=== PATIENT | male | born 1960 | race Two or more races ===

== ENCOUNTER 2017-02-15 21:01 | Inpatient (IN) | payer SELFPAY ==
[~2017-02-15] VITALS: Ht 167.6 cm; Wt 77.1 kg
[~2017-02-15 21:01] MED LIST: AMOX1TAB11 PO; AMOX250C PO; CEFP200T PO; GLIP5TAB10 PO; IBUP-1060 PO; INSU100C4 SQ; INSU100I27 SQ; INSU100V13 SQ; LEVO750T31 PO; LISI-338 PO; METF500T4 PO; METR500T PO; OXYC1TAB9 PO; ibuprofen; metformin
--- NOTE | 2017-02-15 21:37 | PHYS DOC ---
Past Medical History Past Medical History: Diabetes-Type II Additional Past Medical Histor: RECURRING right back abscess. Past Surgical History: Other Additional Past Surgical Histo: abd sx RLQ, DRAIN TO R BACK 6+ TIMES Alcohol Use: None Drug Use: None Adult General Chief Complaint Chief Complaint: SKIN RASH/ABSCESS [facility] HPI Patient is a 56 year old male presents emergency department stating that he has an abscess on his right side. Patient states that he has had this abscess in the past. In which she's had to be hospitalized. Patient has started taken amoxicillin on Sunday for the abscess with no relief. Patient is running a temperature of 101 at this time. The abscesses size of a football. It is very tender to touch and appears to be very indurated. Patient's last tetanus shot was in September. Patient is Serbian-speaking only family member at bedside was interpreting. Review of Systems Review of Systems Constitutional: Denies fever or chills [] Eyes: Denies change in visual acuity, redness, or eye pain [] HENT: Denies nasal congestion or sore throat [] Respiratory: Denies cough or shortness of breath [] Cardiovascular: No additional information not addressed in HPI [] GI: Denies abdominal pain, nausea, vomiting, bloody stools or diarrhea [] : Denies dysuria or hematuria [] Musculoskeletal: Denies back pain or joint pain [] Integument: Denies rash or skin lesions [] Neurologic: Denies headache, focal weakness or sensory changes [] Endocrine: Denies polyuria or polydipsia [] Current Medications Current Medications Current Medications Medications (Trade) Dose Ordered Sig/Yaima Start Time Stop Time Status Last Admin Dose Admin Acetaminophen (Tylenol) 650 mg 1X ONCE 02/15/17 21:45 02/15/17 21:46 DC 02/15/17 21:52 650 MG Allergies Allergies Allergies Coded Allergies Type Severity Reaction Last Updated Verified No Known Drug Allergies 09/20/16 No Physical Exam Physical Exam Constitutional: Well developed, well nourished, no acute distress, non-toxic appearance. [] HENT: Normocephalic, atraumatic, bilateral external ears normal, oropharynx moist, no oral exudates, nose normal. [] Eyes: PERRLA, EOMI, conjunctiva normal, no discharge. [] Neck: Normal range of motion, no tenderness, supple, no stridor. [] Cardiovascular:Heart rate regular rhythm, no murmur [] Lungs & Thorax: Bilateral breath sounds clear to auscultation [] Skin: Warm, dry, no erythema, no rash. Right side abscess noted approximate size of a football very tender to touch indurated with a few red areas. Patient does have some areas noted that are not indurated. Back: No tenderness Extremities: No tenderness, no cyanosis, no clubbing, ROM intact, no edema. [] Neurologic: Alert and oriented X 3, normal motor function, normal sensory function, no focal deficits noted. [] Psychologic: Affect normal, judgement normal, mood normal. [] Current Patient Data Vital Signs Vital Signs Date Time Temp Pulse Resp B/P (MAP) Pulse Ox O2 Delivery O2 Flow Rate FiO2 02/15/17 21:05 101.0 114 20 93 Room Air 101.0 Lab Values Laboratory Tests Test 02/15/17 21:55 White Blood Count 19.5 x10^3/uL (4.0-11.0) H Red Blood Count 4.95 x10^6/uL (4.30-5.70) Hemoglobin 14.5 g/dL (13.0-17.5) Hematocrit 41.6 % (39.0-53.0) Mean Corpuscular Volume 84 fL (79-100) Mean Corpuscular Hemoglobin 29 pg (25-35) Mean Corpuscular Hemoglobin Concent 35 g/dL (31-37) Red Cell Distribution Width 13.9 % (11.5-14.5) Platelet Count 417 x10^3/uL (140-400) H Neutrophils (%) (Auto) 78 % (31-73) H Lymphocytes (%) (Auto) 11 % (24-48) L Monocytes (%) (Auto) 11 % (0-9) H Eosinophils (%) (Auto) 0 % (0-3) Basophils (%) (Auto) 1 % (0-3) Neutrophils # (Auto) 15.2 x10^3uL (1.8-7.7) H Lymphocytes # (Auto) 2.1 x10^3/uL (1.0-4.8) Monocytes # (Auto) 2.1 x10^3/uL (0.0-1.1) H Eosinophils # (Auto) 0.0 x10^3/uL (0.0-0.7) Basophils # (Auto) 0.1 x10^3/uL (0.0-0.2) Segmented Neutrophils % 64 % (35-66) Band Neutrophils % 10 % (0-9) H Lymphocytes % 14 % (24-48) L Monocytes % 11 % (0-10) H Basophils % 1 % (0-3) Toxic Granulation Slight Platelet Estimate Adequate (ADEQUATE) Sodium Level 130 mmol/L (136-145) L Potassium Level 3.6 mmol/L (3.5-5.1) Chloride Level 94 mmol/L (98-107) L Carbon Dioxide Level 24 mmol/L (21-32) Anion Gap 12 (6-14) Blood Urea Nitrogen 14 mg/dL (8-26) Creatinine 0.9 mg/dL (0.7-1.3) Estimated GFR (Cockcroft-Gault) 87.9 BUN/Creatinine Ratio 16 (6-20) Glucose Level 290 mg/dL (70-99) H Calcium Level 9.5 mg/dL (8.5-10.1) Total Bilirubin 1.0 mg/dL (0.2-1.0) Aspartate Amino Transferase (AST) 19 U/L (15-37) Alanine Aminotransferase (ALT) 35 U/L (16-63) Alkaline Phosphatase 367 U/L (46-116) H Total Protein 8.6 g/dL (6.4-8.2) H Albumin 2.7 g/dL (3.4-5.0) L Albumin/Globulin Ratio 0.5 (1.0-1.7) L Laboratory Tests 02/15/17 21:55 Laboratory Tests 02/15/17 21:55 EKG EKG [] Radiology/Procedures Radiology/Procedures [] Course & Med Decision Making Course & Med Decision Making Pertinent Labs and Imaging studies reviewed. (See chart for details) Patient will be provided with Tylenol here in the emergency department. CBC CMP and blood cultures have been ordered. Ultrasound is also been ordered. A call his been placed to the hospitalist for admission. Spoke with Dr. castellano in regards to admission. He has recommended that we call surgery for a consult so the abscess may be drained tomorrow. Spoke with surgeon who is requesting that the patient remain nothing by mouth after midnight for I&D of the abscess. [] Dragon Disclaimer Dragon Disclaimer This electronic medical record was generated, in whole or in part, using a voice recognition dictation system. Departure Departure Impression: Primary Impression: Abscess Disposition: 09 ADMITTED INPATIENT Admitting Physician: Ingrid Castellano Condition: STABLE Referrals: UNKNOWN PCP NAME (PCP) MARLY DE LEON APRN February 15, 2017 21:37
[2017-02-15] MEDS ORDERED: ACETAMINOPHEN 325 MG TABLET. PO ONE (21:45)
[2017-02-15 22:05] LABS: BASO # 0.1 x10^3/uL (0.0-0.2); BASO % 1 % (0-3); EOS % 0 % (0-3); HEMATOCRIT 41.6 % (39.0-53.0); HEMOGLOBIN 14.5 g/dL (13.0-17.5); LYMPH # 2.1 x10^3/uL (1.0-4.8); LYMPH % 11 % (24-48); MEAN CORPUSCULAR HEMOGLOBIN 29 pg (25-35); MEAN CORPUSCULAR HGB CONC 35 g/dL (31-37); MEAN CORPUSCULAR VOLUME 84 fL (79-100); MONO % 11 % (0-9); NEUT % 78 % (31-73); PLATELET COUNT 417 x10^3/uL (140-400); RED BLOOD COUNT 4.95 x10^6/uL (4.30-5.70); RED CELL DISTRIBUTION WIDTH 13.9 % (11.5-14.5); WHITE BLOOD COUNT 19.5 x10^3/uL (4.0-11.0)
[2017-02-15 22:16] LABS: CALCIUM 9.5 mg/dL (8.5-10.1); CREATININE 0.9 mg/dL (0.7-1.3); GFR 87.9; POTASSIUM 3.6 mmol/L (3.5-5.1)
[2017-02-15 22:21] LABS: ALBUMIN 2.7 g/dL (3.4-5.0); ALBUMIN/GLOBULIN RATIO 0.5 (1.0-1.7); TOTAL PROTEIN 8.6 g/dL (6.4-8.2)
[2017-02-15 22:22] LABS: % BASOS 1 % (0-3)
[2017-02-15 22:23] LABS: PLT ESTIMATE ADEQUATE (ADEQUATE); TOXIC GRANULATION SLIGHT
--- NOTE | 2017-02-15 22:36 | RAD ---
PROCEDURE Limited abdomen ultrasound HISTORY Right lower back redness and pain, history of chronic abscess TECHNIQUE Grayscale and color Doppler sonography were utilized COMPARISON CT abdomen and pelvis July 04, 2016 FINDINGS Right dorsal lumbar paraspinal tissue evaluation demonstrates a 6.7 x 3.4 hypoechoic non shadowing focus with areas of internal blood flow, no discrete drainable fluid. Separately at the paraspinal tissues documented is a non shadowing hypoechoic planer band leading toward the skin typical of the skin incision, there is a 1 centimeter rounded focus which is likely scar tissue although a very small fluid collection this location cannot be excluded. IMPRESSION Right dorsal lumbar paraspinal scar is present. Separate from this scar there is a oblong 6.7 centimeter hypoechoic focus with areas of internal blood flow, the internal vascularity is not typical of a fluid collection and could indicate either a focus of exuberant granulation tissue, a paraspinal mass or hernia. Electronically signed by: Redd Connell MD (February 15, 2017 22:35:15)
[2017-02-15] MEDS ORDERED: PIP/TAZO PER PHARMACY MC PRN (22:45)
[2017-02-15] MEDS: IV NORMAL SALINE 1000ML BAG 1,000 ML IV SCH (22:54)
[2017-02-15] MEDS ORDERED: MORPHINE SULFATE 4 MG/ML DISP.SYRIN. IV ONE (23:00)
[2017-02-15] MEDS ORDERED: VANCOMYCIN 2 GM in IV NORMAL SALINE 500ML BAG 500 ML IV ONE (23:00)
[2017-02-15] MEDS: PIPERACILLIN/TAZOBACTAM 3.375 GM in IV NORMAL SALINE 50ML 50 ML IV SCH (23:00)
[2017-02-15 23:34] VITALS: BP 134/77
[2017-02-16] MEDS ORDERED: DEXTROSE 50% 25 GM / 50ML DISP.SYRIN. IV PRN ×2 (01:30→15:15)
[2017-02-16] MEDS: VANCOMYCIN PER PHARMACY MC PRN (01:36)
[2017-02-16 03:00] VITALS: BP 114/71
[2017-02-16] MEDS ORDERED: INSULIN ASPART 300 UNITS/3 ML INSULN.PEN SQ ONE (03:00)
[2017-02-16] MEDS: MORPHINE SULFATE 4 MG/ML DISP.SYRIN. IV PRN ×5 (03:32→21:17)
[2017-02-16] MEDS: IV NORMAL SALINE 1000ML BAG 1,000 ML IV SCH ×2 (05:44→15:14)
[2017-02-16] MEDS: PIPERACILLIN/TAZOBACTAM 3.375 GM in IV NORMAL SALINE 50ML 50 ML IV SCH ×2 (05:44→12:01)
[2017-02-16 05:48] LABS: BASO # 0.1 x10^3/uL (0.0-0.2); BASO % 0 % (0-3); EOS % 0 % (0-3); HEMATOCRIT 35.2 % (39.0-53.0); HEMOGLOBIN 12.5 g/dL (13.0-17.5); LYMPH % 11 % (24-48); MEAN CORPUSCULAR HEMOGLOBIN 30 pg (25-35); MEAN CORPUSCULAR HGB CONC 36 g/dL (31-37); MEAN CORPUSCULAR VOLUME 85 fL (79-100); MONO % 11 % (0-9); NEUT % 77 % (31-73); PLATELET COUNT 371 x10^3/uL (140-400); RED BLOOD COUNT 4.17 x10^6/uL (4.30-5.70); RED CELL DISTRIBUTION WIDTH 14.2 % (11.5-14.5); WHITE BLOOD COUNT 18.9 x10^3/uL (4.0-11.0)
[2017-02-16 06:06] LABS: CALCIUM 8.7 mg/dL (8.5-10.1); CREATININE 0.8 mg/dL (0.7-1.3); GFR 100.7; POTASSIUM 3.2 mmol/L (3.5-5.1)
[2017-02-16 07:00] VITALS: BP 123/76
[2017-02-16] MEDS: INSULIN ASPART 300 UNITS/3 ML INSULN.PEN SQ SCH ×4 (09:03→17:54)
[2017-02-16 11:00] VITALS: BP 128/75
[2017-02-16] MEDS ORDERED: IOHEXOL 300 MG/ML 75 ML VIAL IV ONE (12:00)
[2017-02-16] MEDS ORDERED: IOHEXOL 240 MG/ML 50ML VIAL. PO ONE (12:00)
[2017-02-16] MEDS ORDERED: CONTRAST GIVEN MC PRN (12:00)
--- NOTE | 2017-02-16 12:06 | PDOC2 ---
JULIOCESAR REYES SHIPSMITH 02/16/17 1206: CONSULT Date of Consult Date of Consult DATE: 02/16/17 TIME: 12:00 Reason for Consult Reason for Consult: abscess Referring Physician Referring Physician: ER Identification/Chief Complaint Chief Complaint flank abscess Source Source: Chart review, Patient History of Present Illness Reason for Visit: Patient well known to our service for multiple admissions for recurrent retroperitoneal abscess. In 09/14/2016 he underwent an xlap, appy and wide drainage of abscess. He was treated with antibiotics and wound care. He reports it resolved and has had no trouble until last Sunday when he started having swelling and pain to same area again. 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 He has been on chronic abxs in past for these abscesses Past Medical History Cardiovascular: No pertinent hx Hepatobiliary: No pertinent hx Psych: No pertinent hx Rheumatologic: No pertinent hx Infectious disease: No pertinent hx, Other Endocrine: Diabetes Past Surgical History Past Surgical History: Appendectomy, Other Family History Family History: No Significant, Diabetes Social History ALCOHOL: none Drugs: None Current Problem List Problem List Problems Medical Problems: (1) Abscess Status: Acute Current Medications Current Medications Current Medications Acetaminophen (Tylenol) 650 mg 1X ONCE PO Last administered on 02/15/17 21:52 ; Start 02/15/17 at 21:45; Stop 02/15/17 at 21:46; Status DC Sodium Chloride 1,000 ml @ 125 mls/hr Q8H IV Last administered on 02/16/17 05 :44; Start 02/15/17 at 22:33; Stop 02/16/17 at 22:32 Vancomycin HCl (Vanco Per Pharmacy) 1 each PRN DAILY PRN MC SEE COMMENTS Last administered on 02/16/17 01:36; Start 02/15/17 at 22:45 Piperacillin Sod/ Tazobactam Sod (Zosyn Per Pharmacy) 1 each PRN DAILY PRN MC SEE COMMENTS; Start 02/15/17 at 22:45 Vancomycin HCl 2 gm/Sodium Chloride 500 ml @ 250 mls/hr 1X ONCE IV Last administered on 02/16/17 00:06; Start 02/15/17 at 23:00; Stop 02/16/17 at 00:59 ; Status DC Piperacillin Sod/ Tazobactam Sod 3.375 gm/Sodium Chloride 50 ml @ 100 mls/hr Q6HRS IV Last administered on 02/16/17 05:44; Start 02/16/17 at 00:00 Morphine Sulfate 4 mg 1X ONCE IV Last administered on 02/15/17 22:56; Start 02/15/17 at 23:00; Stop 02/15/17 at 23:01; Status DC Insulin Aspart (NovoLOG) 0-7 UNITS TIDWMEALS SQ Last administered on 02/16/17 09:03; Start 02/16/17 at 08:00 Dextrose (Dextrose 50%-Water Syringe) 12.5 gm PRN Q15MIN PRN IV SEE COMMENTS; Start 02/16/17 at 01:30 Morphine Sulfate 4 mg PRN Q2HR PRN IV SEVERE PAIN Last administered on 08:58; Start 02/16/17 at 01:30 Vancomycin HCl 1.25 gm/Sodium Chloride 250 ml @ 167 mls/hr Q12H IV ; Start 09/23 at 12:00 Vancomycin HCl 1 each 1X ONCE MC ; Start 02/17/17 at 11:30; Stop 02/17/17 at 11 :31 Insulin Aspart (NovoLOG) 0-7 UNITS 1X ONCE SQ Last administered on 02/16/17 04:10; Start 02/16/17 at 03:00; Stop 02/16/17 at 03:01; Status DC Iohexol (Omnipaque 240 Mg/ml) 30 ml 1X ONCE PO ; Start 02/16/17 at 12:00; Stop 02/16/17 at 12:01 Iohexol (Omnipaque 300 Mg/ml) 75 ml 1X ONCE IV ; Start 02/16/17 at 12:00; Stop 02/16/17 at 12:01 Info (Do NOT chart on this entry -- for MONITORING) 1 each PRN DAILY PRN MC SEE COMMENTS; Start 02/16/17 at 12:00; Stop 02/18/17 at 11:59 Active Scripts Active Lisinopril 5 Mg Tablet 5 Mg PO DAILY Oxycodone-Acetaminophen 10-325 (Oxycodone Hcl/Acetaminophen) 1 Each Tablet 1 Tab PO PRN Q12HR PRN Flagyl (Metronidazole) 500 Mg Tablet 500 Mg PO Q12HR Cefpodoxime Proxetil 200 Mg Tablet 200 Mg PO BID Levemir Flextouch (Insulin Detemir) 100 Unit/1 Ml Insuln.pen 10 Units SQ QHS Reported Metformin Hcl 500 Mg Tablet 2 Tab PO BID Allergies Allergies: Coded Allergies: No Known Drug Allergies (Unverified , 09/20/16) ROS General: YES: Chills, Other (+ fevers) PSYCHOLOGICAL ROS: No: Anxiety, Depression Eyes: No Blurry vision, No Double vision HEENT: No: Heacaches, Sore Throat Hematological and Lymphatic: No: Bleeding Problems, Blood Clots Respiratory: YES: SOB with excertion, No: Cough Cardiovascular: No Chest Pain, No Palpitations Gastrointestinal: Yes Nausea, No Abdominal Pain Genitourinary: No Dysuria, No Hematuria Musculoskeletal: No Joint Pain, No Muscle Pain Neurological: No Confusion Skin: Yes Other (see hpi) Physical Exam General: Alert, Oriented X3, Cooperative, No acute distress HEENT: PERRLA, Mucous membr. moist/pink Lungs: Clear to auscultation, Normal air movement Heart: Regular rate, Normal S1, Normal S2, No murmurs Abdomen: Soft, Other (ND, right flank over previous scar is erythematous, indurated, tender and warm to touch ) Extremities: No clubbing, No cyanosis Skin: No rashes, No breakdown Neuro: Normal gait, Normal speech Psych/Mental Status: Mental status NL, Mood NL MUSCULOSKELETAL: No deformity, No swelling Vitals VITALS Vital Signs Date Time Temp Pulse Resp B/P (MAP) Pulse Ox O2 Delivery O2 Flow Rate FiO2 02/16/17 11:00 98.9 82 20 128/75 (92) 92 Room Air 98.9 Labs Labs Laboratory Tests Test 02/15/17 21:55 02/16/17 00:19 02/16/17 04:07 02/16/17 04:36 White Blood Count 19.5 x10^3/uL (4.0-11.0) 18.9 x10^3/uL (4.0-11.0) Red Blood Count 4.95 x10^6/uL (4.30-5.70) 4.17 x10^6/uL (4.30-5.70) Hemoglobin 14.5 g/dL (13.0-17.5) 12.5 g/dL (13.0-17.5) Hematocrit 41.6 % (39.0-53.0) 35.2 % (39.0-53.0) Mean Corpuscular Volume 84 fL (79-100) 85 fL (79-100) Mean Corpuscular Hemoglobin 29 pg (25-35) 30 pg (25-35) Mean Corpuscular Hemoglobin Concent 35 g/dL (31-37) 36 g/dL (31-37) Red Cell Distribution Width 13.9 % (11.5-14.5) 14.2 % (11.5-14.5) Platelet Count 417 x10^3/uL (140-400) 371 x10^3/uL (140-400) Neutrophils (%) (Auto) 78 % (31-73) 77 % (31-73) Lymphocytes (%) (Auto) 11 % (24-48) 11 % (24-48) Monocytes (%) (Auto) 11 % (0-9) 11 % (0-9) Eosinophils (%) (Auto) 0 % (0-3) 0 % (0-3) Basophils (%) (Auto) 1 % (0-3) 0 % (0-3) Neutrophils # (Auto) 15.2 x10^3uL (1.8-7.7) 14.6 x10^3uL (1.8-7.7) Lymphocytes # (Auto) 2.1 x10^3/uL (1.0-4.8) 2.0 x10^3/uL (1.0-4.8) Monocytes # (Auto) 2.1 x10^3/uL (0.0-1.1) 2.1 x10^3/uL (0.0-1.1) Eosinophils # (Auto) 0.0 x10^3/uL (0.0-0.7) 0.1 x10^3/uL (0.0-0.7) Basophils # (Auto) 0.1 x10^3/uL (0.0-0.2) 0.1 x10^3/uL (0.0-0.2) Segmented Neutrophils % 64 % (35-66) Band Neutrophils % 10 % (0-9) Lymphocytes % 14 % (24-48) Monocytes % 11 % (0-10) Basophils % 1 % (0-3) Toxic Granulation Slight Platelet Estimate Adequate (ADEQUATE) Sodium Level 130 mmol/L (136-145) 133 mmol/L (136-145) Potassium Level 3.6 mmol/L (3.5-5.1) 3.2 mmol/L (3.5-5.1) Chloride Level 94 mmol/L (98-107) 98 mmol/L (98-107) Carbon Dioxide Level 24 mmol/L (21-32) 25 mmol/L (21-32) Anion Gap 12 (6-14) 10 (6-14) Blood Urea Nitrogen 14 mg/dL (8-26) 13 mg/dL (8-26) Creatinine 0.9 mg/dL (0.7-1.3) 0.8 mg/dL (0.7-1.3) Estimated GFR (Cockcroft-Gault) 87.9 100.7 BUN/Creatinine Ratio 16 (6-20) Glucose Level 290 mg/dL (70-99) 257 mg/dL (70-99) Calcium Level 9.5 mg/dL (8.5-10.1) 8.7 mg/dL (8.5-10.1) Total Bilirubin 1.0 mg/dL (0.2-1.0) Aspartate Amino Transf (AST/SGOT) 19 U/L (15-37) Alanine Aminotransferase (ALT/SGPT) 35 U/L (16-63) Alkaline Phosphatase 367 U/L (46-116) Total Protein 8.6 g/dL (6.4-8.2) Albumin 2.7 g/dL (3.4-5.0) Albumin/Globulin Ratio 0.5 (1.0-1.7) Glucose (Fingerstick) 272 mg/dL (70-99) 242 mg/dL (70-99) Test 02/16/17 07:57 Glucose (Fingerstick) 247 mg/dL (70-99) Laboratory Tests Test 02/15/17 21:55 02/16/17 00:19 02/16/17 04:07 02/16/17 04:36 White Blood Count 19.5 x10^3/uL (4.0-11.0) 18.9 x10^3/uL (4.0-11.0) Red Blood Count 4.95 x10^6/uL (4.30-5.70) 4.17 x10^6/uL (4.30-5.70) Hemoglobin 14.5 g/dL (13.0-17.5) 12.5 g/dL (13.0-17.5) Hematocrit 41.6 % (39.0-53.0) 35.2 % (39.0-53.0) Mean Corpuscular Volume 84 fL (79-100) 85 fL (79-100) Mean Corpuscular Hemoglobin 29 pg (25-35) 30 pg (25-35) Mean Corpuscular Hemoglobin Concent 35 g/dL (31-37) 36 g/dL (31-37) Red Cell Distribution Width 13.9 % (11.5-14.5) 14.2 % (11.5-14.5) Platelet Count 417 x10^3/uL (140-400) 371 x10^3/uL (140-400) Neutrophils (%) (Auto) 78 % (31-73) 77 % (31-73) Lymphocytes (%) (Auto) 11 % (24-48) 11 % (24-48) Monocytes (%) (Auto) 11 % (0-9) 11 % (0-9) Eosinophils (%) (Auto) 0 % (0-3) 0 % (0-3) Basophils (%) (Auto) 1 % (0-3) 0 % (0-3) Neutrophils # (Auto) 15.2 x10^3uL (1.8-7.7) 14.6 x10^3uL (1.8-7.7) Lymphocytes # (Auto) 2.1 x10^3/uL (1.0-4.8) 2.0 x10^3/uL (1.0-4.8) Monocytes # (Auto) 2.1 x10^3/uL (0.0-1.1) 2.1 x10^3/uL (0.0-1.1) Eosinophils # (Auto) 0.0 x10^3/uL (0.0-0.7) 0.1 x10^3/uL (0.0-0.7) Basophils # (Auto) 0.1 x10^3/uL (0.0-0.2) 0.1 x10^3/uL (0.0-0.2) Segmented Neutrophils % 64 % (35-66) Band Neutrophils % 10 % (0-9) Lymphocytes % 14 % (24-48) Monocytes % 11 % (0-10) Basophils % 1 % (0-3) Toxic Granulation Slight Platelet Estimate Adequate (ADEQUATE) Sodium Level 130 mmol/L (136-145) 133 mmol/L (136-145) Potassium Level 3.6 mmol/L (3.5-5.1) 3.2 mmol/L (3.5-5.1) Chloride Level 94 mmol/L (98-107) 98 mmol/L (98-107) Carbon Dioxide Level 24 mmol/L (21-32) 25 mmol/L (21-32) Anion Gap 12 (6-14) 10 (6-14) Blood Urea Nitrogen 14 mg/dL (8-26) 13 mg/dL (8-26) Creatinine 0.9 mg/dL (0.7-1.3) 0.8 mg/dL (0.7-1.3) Estimated GFR (Cockcroft-Gault) 87.9 100.7 BUN/Creatinine Ratio 16 (6-20) Glucose Level 290 mg/dL (70-99) 257 mg/dL (70-99) Calcium Level 9.5 mg/dL (8.5-10.1) 8.7 mg/dL (8.5-10.1) Total Bilirubin 1.0 mg/dL (0.2-1.0) Aspartate Amino Transf (AST/SGOT) 19 U/L (15-37) Alanine Aminotransferase (ALT/SGPT) 35 U/L (16-63) Alkaline Phosphatase 367 U/L (46-116) Total Protein 8.6 g/dL (6.4-8.2) Albumin 2.7 g/dL (3.4-5.0) Albumin/Globulin Ratio 0.5 (1.0-1.7) Glucose (Fingerstick) 272 mg/dL (70-99) 242 mg/dL (70-99) Test 02/16/17 07:57 Glucose (Fingerstick) 247 mg/dL (70-99) Assessment/Plan Assessment/Plan Right flank erythema and induration, history of recurrent retroperitoneal abscesses leukocytosis, fevers DM US reviewed, Will check CT, will consult Dr Michel D/W KHADRA Hayes MD 02/16/17 1718: CONSULT Allergies Allergies: Coded Allergies: No Known Drug Allergies (Unverified , 09/20/16) Assessment/Plan Assessment/Plan Pt seen and examined. Agree with Ms. Reyes's note. Pt well known Relatively asymptomatic compared to previous episodes right flank erythema and thickening will ask IR to drain Thanks for consult! JULIOCESAR REYES APRN February 16, 2017 12:06 KHADRA LUNA MD February 16, 2017 17:18
[2017-02-16] MEDS: VANCOMYCIN 1.25 GM in IV NORMAL SALINE 250ML 250 ML IV SCH (12:37)
--- NOTE | 2017-02-16 13:59 | RAD ---
Indication right flank pain. Abscess. Axial images of the abdomen and pelvis were obtained. Both oral and IV contrast were administered. 75 cc of Omnipaque 300 was administered intravenously. Note is made of a previous examination 5 months ago. The lung bases are clear. The liver and spleen appear unremarkable. The pancreas adrenal glands and kidneys appear normal. Occasional diverticula are seen associated with the large bowel. Active inflammation is not seen. Findings compatible with a recurrent abscess are seen. There is an air fluid collection, compatible with abscess, in the soft tissues of the right back just above the crest of the iliac muscle. This fluid collection measures approximately 11 cm in greatest dimension. The abscess communicates with the right retroperitoneum and manifests as an air fluid collection measuring approximately 7 cm interposed between the iliac bone and psoas muscle, displacing the psoas slightly medially. The abscess likely incorporates part of the iliac muscle Small pockets of air are seen medial to the psoas muscle. The overall appearance of the abscess is very similar to the previous exam. IMPRESSION: Recurrent abscess right flank similar to the examination 5 months ago PQRS Compliance Statement: One or more of the following individualized dose reduction techniques were utilized for this examination: 1. Automated exposure control 2. Adjustment of the mA and/or kV according to patient size 3. Use of iterative reconstruction technique
[2017-02-16 15:00] VITALS: BP 137/78
[2017-02-16] MEDS ORDERED: oxyCODONE IR 5 MG TABLET PO PRN (15:00)
[2017-02-16 19:00] VITALS: BP 143/72
[2017-02-16] MEDS: oxyCODONE IR 5 MG TABLET PO PRN (19:02)
[2017-02-16] MEDS: INSULIN DETEMIR 300 UNITS/3 ML INSULN.PEN. SQ SCH (21:22)
[2017-02-16 23:00] VITALS: BP 115/64
[2017-02-17] MEDS: VANCOMYCIN 1.25 GM in IV NORMAL SALINE 250ML 250 ML IV SCH ×2 (00:19→12:00)
[2017-02-17] MEDS: oxyCODONE IR 5 MG TABLET PO PRN ×2 (00:21→22:13)
[2017-02-17 03:01] VITALS: BP 122/77
[2017-02-17 07:00] VITALS: BP 136/77
[2017-02-17] MEDS: LISINOPRIL 5 MG TABLET. PO SCH (08:33)
[2017-02-17] MEDS: MORPHINE SULFATE 4 MG/ML DISP.SYRIN. IV PRN ×2 (08:34→12:06)
[2017-02-17] MEDS: INSULIN ASPART 300 UNITS/3 ML INSULN.PEN SQ SCH ×3 (08:41→17:00)
[2017-02-17 11:00] VITALS: BP 132/75
[2017-02-17 11:55] LABS: BASO % 0 % (0-3); EOS % 0 % (0-3); HEMOGLOBIN 12.1 g/dL (13.0-17.5); LYMPH % 10 % (24-48); MEAN CORPUSCULAR HEMOGLOBIN 29 pg (25-35); MEAN CORPUSCULAR HGB CONC 35 g/dL (31-37); MEAN CORPUSCULAR VOLUME 85 fL (79-100); MONO % 10 % (0-9); NEUT % 80 % (31-73); PLATELET COUNT 400 x10^3/uL (140-400); RED BLOOD COUNT 4.15 x10^6/uL (4.30-5.70); RED CELL DISTRIBUTION WIDTH 13.9 % (11.5-14.5); WHITE BLOOD COUNT 20.6 x10^3/uL (4.0-11.0)
[2017-02-17 11:58] LABS: INR 1.2 (0.8-1.1); PROTHROMBIN TIME PATIENT 14.7 SEC (11.7-14.0)
[2017-02-17 12:04] LABS: ALBUMIN 2.1 g/dL (3.4-5.0); ALBUMIN/GLOBULIN RATIO 0.4 (1.0-1.7); CALCIUM 8.6 mg/dL (8.5-10.1); CREATININE 0.8 mg/dL (0.7-1.3); GFR 100.7; POTASSIUM 3.4 mmol/L (3.5-5.1); TOTAL BILIRUBIN 1.3 mg/dL (0.2-1.0); TOTAL PROTEIN 7.1 g/dL (6.4-8.2)
[2017-02-17] MEDS ORDERED: LIDOCAINE 1% / SOD BICARB 8.4% 20 ML VIAL. IJ ONE ×2 (12:31→13:00)
[2017-02-17] MEDS ORDERED: fentaNYL PF VIAL 100 MCG/2 ML VIAL ONE (12:32)
[2017-02-17] MEDS ORDERED: MIDAZOLAM HCL/PF 2 MG/2 ML VIAL. ONE (12:32)
[2017-02-17] MEDS: VANCOMYCIN PER PHARMACY MC PRN (13:01)
--- NOTE | 2017-02-17 13:15 | PDOC4 ---
Operative Note Operative Note Procedure: R Flank abscess drain Indication: recurrent right flank abscess cold work operator: John faculty research assistant: None complications: None Sample: 10 cc purulent fluid sent for culture sedation: none MARCUS MORALES MD February 17, 2017 13:15
[2017-02-17] MEDS: VANCOMYCIN 1.5 GM in IV NORMAL SALINE 500ML BAG 500 ML IV SCH ×2 (13:42→21:02)
--- NOTE | 2017-02-17 13:45 | RAD ---
Procedure: Ultrasound Guided Abscess Drain History: Patient with recurrent right psoas abscess The procedure, risks, and complications to include bleeding, infection, tube dislodgment, damage to solid organs and visceral perforation were explained to the patient and they understood and wished to proceed. Consent form signed. The right flank was prepped and draped using maximal sterile technique and 1% Xylocaine was used for local anesthesia. Ultrasound evaluation: Ultrasound shows that there is a complex fluid collection in the right flank consistent with prior CT ultrasound imaging. An ultrasound image was saved and sent to PACS. Under ultrasound guidance a 18 gauge needle was advanced into the collection and a 0.035 wire placed. The tract was dilated to 10 iraqi and a 10 iraqi abscession drain was placed over the wire. Aspirated fluid appeared purulent. 10 cc was sent for culture and sensitivity. The catheter was sutured to the skin. Sedation: None The patient was monitored by pulse oximetry and cardiovascular monitoring equipment and observed by the nurses in attendance. Complications: None The patient tolerated the procedure well and returned to the floor in stable condition. Conclusion: Ultrasound right flank drain placement. Recommend 2-week sinogram follow up.
[2017-02-17 15:00] VITALS: BP 126/68
[2017-02-17] MEDS ORDERED: INSULIN ASPART 300 UNITS/3 ML INSULN.PEN SQ ONE (17:15)
--- NOTE | 2017-02-17 18:56 | PDOC ---
PROGRESS NOTES Chief Complaint Chief Complaint Recurrent flank abscess with retroperit extension ASSESSMENT AND PLAN: 1. Abscess: s/p drain placement by VIR today. fluid sent for culture. cont current Abx regimen 2. Pain control: adequate, offer oxyconting as first choice. 3. Leukocytosis: with left shift, c/w infection 4. DM: poorly controlled, prob 2/2 infection. home regimen, cont ISS 5. Hypokalemia: replete orally 6. Prophylaxis: lovenox History of Present Illness History of Present Illness flank improved with drain, still hot and tender to palp. Vitals Vitals Vital Signs Date Time Temp Pulse Resp B/P (MAP) Pulse Ox O2 Delivery O2 Flow Rate FiO2 02/17/17 17:18 Room Air 02/17/17 15:00 99.6 88 20 126/68 (87) 94 99.6 Physical Exam General: Alert, Oriented X3, Cooperative, No acute distress Heart: Regular rate, No murmurs Lungs: Clear Abdomen: Normal bowel sounds, Soft, No tenderness, Other ( right flank erythematous, indurated, tender, drain in place) Extremities: No clubbing, No cyanosis, No edema Skin: No rashes Labs LABS Laboratory Tests Test 02/16/17 20:48 02/17/17 08:02 02/17/17 11:30 02/17/17 11:58 Glucose (Fingerstick) 288 mg/dL (70-99) 219 mg/dL (70-99) 174 mg/dL (70-99) White Blood Count 20.6 x10^3/uL (4.0-11.0) Red Blood Count 4.15 x10^6/uL (4.30-5.70) Hemoglobin 12.1 g/dL (13.0-17.5) Hematocrit 35.0 % (39.0-53.0) Mean Corpuscular Volume 85 fL (79-100) Mean Corpuscular Hemoglobin 29 pg (25-35) Mean Corpuscular Hemoglobin Concent 35 g/dL (31-37) Red Cell Distribution Width 13.9 % (11.5-14.5) Platelet Count 400 x10^3/uL (140-400) Neutrophils (%) (Auto) 80 % (31-73) Lymphocytes (%) (Auto) 10 % (24-48) Monocytes (%) (Auto) 10 % (0-9) Eosinophils (%) (Auto) 0 % (0-3) Basophils (%) (Auto) 0 % (0-3) Neutrophils # (Auto) 16.5 x10^3uL (1.8-7.7) Lymphocytes # (Auto) 2.0 x10^3/uL (1.0-4.8) Monocytes # (Auto) 2.0 x10^3/uL (0.0-1.1) Eosinophils # (Auto) 0.0 x10^3/uL (0.0-0.7) Basophils # (Auto) 0.0 x10^3/uL (0.0-0.2) Prothrombin Time 14.7 SEC (11.7-14.0) Prothromb Time International Ratio 1.2 (0.8-1.1) Sodium Level 134 mmol/L (136-145) Potassium Level 3.4 mmol/L (3.5-5.1) Chloride Level 97 mmol/L (98-107) Carbon Dioxide Level 28 mmol/L (21-32) Anion Gap 9 (6-14) Blood Urea Nitrogen 9 mg/dL (8-26) Creatinine 0.8 mg/dL (0.7-1.3) Estimated GFR (Cockcroft-Gault) 100.7 BUN/Creatinine Ratio 11 (6-20) Glucose Level 177 mg/dL (70-99) Calcium Level 8.6 mg/dL (8.5-10.1) Total Bilirubin 1.3 mg/dL (0.2-1.0) Aspartate Amino Transf (AST/SGOT) 11 U/L (15-37) Alanine Aminotransferase (ALT/SGPT) 19 U/L (16-63) Alkaline Phosphatase 266 U/L (46-116) Total Protein 7.1 g/dL (6.4-8.2) Albumin 2.1 g/dL (3.4-5.0) Albumin/Globulin Ratio 0.4 (1.0-1.7) Vancomycin Level Trough 4.9 mcg/mL (10.0-20.0) Vancomycin Last Dose Date 02-17-17 Vancomycin Last Dose Time 0000 Test 02/17/17 16:53 Glucose (Fingerstick) 382 mg/dL (70-99) CHRIS HENRY MD February 17, 2017 18:55
[2017-02-17 19:15] VITALS: BP 114/72
[2017-02-17] MEDS: INSULIN DETEMIR 300 UNITS/3 ML INSULN.PEN. SQ SCH (21:11)
--- NOTE | 2017-02-17 21:35 | PDOC ---
SURGICAL PROGRESS NOTE Subjective Pt with c/o right flank pain Vital Signs Vital Signs Date Time Temp Pulse Resp B/P (MAP) Pulse Ox O2 Delivery O2 Flow Rate FiO2 02/17/17 19:15 98.4 85 16 114/72 (86) 93 Room Air 98.4 I&O Intake and Output 02/17/17 07:00 Intake Total 1840 ml Output Total 0 ml Balance 1840 ml Intake Oral 740 ml IV Total 1100 ml Output Urine Total 0 ml # Voids 2 General: Alert, Oriented X3, Cooperative, No acute distress Abdomen: Soft, Other (TTP and induration of right flank area) Labs Laboratory Tests Test 02/15/17 21:55 02/16/17 00:19 02/16/17 04:07 02/16/17 04:36 White Blood Count 19.5 x10^3/uL (4.0-11.0) 18.9 x10^3/uL (4.0-11.0) Red Blood Count 4.95 x10^6/uL (4.30-5.70) 4.17 x10^6/uL (4.30-5.70) Hemoglobin 14.5 g/dL (13.0-17.5) 12.5 g/dL (13.0-17.5) Hematocrit 41.6 % (39.0-53.0) 35.2 % (39.0-53.0) Mean Corpuscular Volume 84 fL (79-100) 85 fL (79-100) Mean Corpuscular Hemoglobin 29 pg (25-35) 30 pg (25-35) Mean Corpuscular Hemoglobin Concent 35 g/dL (31-37) 36 g/dL (31-37) Red Cell Distribution Width 13.9 % (11.5-14.5) 14.2 % (11.5-14.5) Platelet Count 417 x10^3/uL (140-400) 371 x10^3/uL (140-400) Neutrophils (%) (Auto) 78 % (31-73) 77 % (31-73) Lymphocytes (%) (Auto) 11 % (24-48) 11 % (24-48) Monocytes (%) (Auto) 11 % (0-9) 11 % (0-9) Eosinophils (%) (Auto) 0 % (0-3) 0 % (0-3) Basophils (%) (Auto) 1 % (0-3) 0 % (0-3) Neutrophils # (Auto) 15.2 x10^3uL (1.8-7.7) 14.6 x10^3uL (1.8-7.7) Lymphocytes # (Auto) 2.1 x10^3/uL (1.0-4.8) 2.0 x10^3/uL (1.0-4.8) Monocytes # (Auto) 2.1 x10^3/uL (0.0-1.1) 2.1 x10^3/uL (0.0-1.1) Eosinophils # (Auto) 0.0 x10^3/uL (0.0-0.7) 0.1 x10^3/uL (0.0-0.7) Basophils # (Auto) 0.1 x10^3/uL (0.0-0.2) 0.1 x10^3/uL (0.0-0.2) Segmented Neutrophils % 64 % (35-66) Band Neutrophils % 10 % (0-9) Lymphocytes % 14 % (24-48) Monocytes % 11 % (0-10) Basophils % 1 % (0-3) Toxic Granulation Slight Platelet Estimate Adequate (ADEQUATE) Sodium Level 130 mmol/L (136-145) 133 mmol/L (136-145) Potassium Level 3.6 mmol/L (3.5-5.1) 3.2 mmol/L (3.5-5.1) Chloride Level 94 mmol/L (98-107) 98 mmol/L (98-107) Carbon Dioxide Level 24 mmol/L (21-32) 25 mmol/L (21-32) Anion Gap 12 (6-14) 10 (6-14) Blood Urea Nitrogen 14 mg/dL (8-26) 13 mg/dL (8-26) Creatinine 0.9 mg/dL (0.7-1.3) 0.8 mg/dL (0.7-1.3) Estimated GFR (Cockcroft-Gault) 87.9 100.7 BUN/Creatinine Ratio 16 (6-20) Glucose Level 290 mg/dL (70-99) 257 mg/dL (70-99) Calcium Level 9.5 mg/dL (8.5-10.1) 8.7 mg/dL (8.5-10.1) Total Bilirubin 1.0 mg/dL (0.2-1.0) Aspartate Amino Transf (AST/SGOT) 19 U/L (15-37) Alanine Aminotransferase (ALT/SGPT) 35 U/L (16-63) Alkaline Phosphatase 367 U/L (46-116) Total Protein 8.6 g/dL (6.4-8.2) Albumin 2.7 g/dL (3.4-5.0) Albumin/Globulin Ratio 0.5 (1.0-1.7) Glucose (Fingerstick) 272 mg/dL (70-99) 242 mg/dL (70-99) Hemoglobin A1c 8.6 % (4.8-5.6) Test 02/16/17 07:57 02/16/17 11:26 02/16/17 16:52 02/16/17 20:48 Glucose (Fingerstick) 247 mg/dL (70-99) 207 mg/dL (70-99) 209 mg/dL (70-99) 288 mg/dL (70-99) Test 02/17/17 08:02 02/17/17 11:30 02/17/17 11:58 02/17/17 16:53 Glucose (Fingerstick) 219 mg/dL (70-99) 174 mg/dL (70-99) 382 mg/dL (70-99) White Blood Count 20.6 x10^3/uL (4.0-11.0) Red Blood Count 4.15 x10^6/uL (4.30-5.70) Hemoglobin 12.1 g/dL (13.0-17.5) Hematocrit 35.0 % (39.0-53.0) Mean Corpuscular Volume 85 fL (79-100) Mean Corpuscular Hemoglobin 29 pg (25-35) Mean Corpuscular Hemoglobin Concent 35 g/dL (31-37) Red Cell Distribution Width 13.9 % (11.5-14.5) Platelet Count 400 x10^3/uL (140-400) Neutrophils (%) (Auto) 80 % (31-73) Lymphocytes (%) (Auto) 10 % (24-48) Monocytes (%) (Auto) 10 % (0-9) Eosinophils (%) (Auto) 0 % (0-3) Basophils (%) (Auto) 0 % (0-3) Neutrophils # (Auto) 16.5 x10^3uL (1.8-7.7) Lymphocytes # (Auto) 2.0 x10^3/uL (1.0-4.8) Monocytes # (Auto) 2.0 x10^3/uL (0.0-1.1) Eosinophils # (Auto) 0.0 x10^3/uL (0.0-0.7) Basophils # (Auto) 0.0 x10^3/uL (0.0-0.2) Prothrombin Time 14.7 SEC (11.7-14.0) Prothromb Time International Ratio 1.2 (0.8-1.1) Sodium Level 134 mmol/L (136-145) Potassium Level 3.4 mmol/L (3.5-5.1) Chloride Level 97 mmol/L (98-107) Carbon Dioxide Level 28 mmol/L (21-32) Anion Gap 9 (6-14) Blood Urea Nitrogen 9 mg/dL (8-26) Creatinine 0.8 mg/dL (0.7-1.3) Estimated GFR (Cockcroft-Gault) 100.7 BUN/Creatinine Ratio 11 (6-20) Glucose Level 177 mg/dL (70-99) Calcium Level 8.6 mg/dL (8.5-10.1) Total Bilirubin 1.3 mg/dL (0.2-1.0) Aspartate Amino Transf (AST/SGOT) 11 U/L (15-37) Alanine Aminotransferase (ALT/SGPT) 19 U/L (16-63) Alkaline Phosphatase 266 U/L (46-116) Total Protein 7.1 g/dL (6.4-8.2) Albumin 2.1 g/dL (3.4-5.0) Albumin/Globulin Ratio 0.4 (1.0-1.7) Vancomycin Level Trough 4.9 mcg/mL (10.0-20.0) Vancomycin Last Dose Date 02-17-17 Vancomycin Last Dose Time 0000 Test 02/17/17 20:18 Glucose (Fingerstick) 238 mg/dL (70-99) Laboratory Tests Test 02/17/17 08:02 02/17/17 11:30 02/17/17 11:58 02/17/17 16:53 Glucose (Fingerstick) 219 mg/dL (70-99) 174 mg/dL (70-99) 382 mg/dL (70-99) White Blood Count 20.6 x10^3/uL (4.0-11.0) Red Blood Count 4.15 x10^6/uL (4.30-5.70) Hemoglobin 12.1 g/dL (13.0-17.5) Hematocrit 35.0 % (39.0-53.0) Mean Corpuscular Volume 85 fL (79-100) Mean Corpuscular Hemoglobin 29 pg (25-35) Mean Corpuscular Hemoglobin Concent 35 g/dL (31-37) Red Cell Distribution Width 13.9 % (11.5-14.5) Platelet Count 400 x10^3/uL (140-400) Neutrophils (%) (Auto) 80 % (31-73) Lymphocytes (%) (Auto) 10 % (24-48) Monocytes (%) (Auto) 10 % (0-9) Eosinophils (%) (Auto) 0 % (0-3) Basophils (%) (Auto) 0 % (0-3) Neutrophils # (Auto) 16.5 x10^3uL (1.8-7.7) Lymphocytes # (Auto) 2.0 x10^3/uL (1.0-4.8) Monocytes # (Auto) 2.0 x10^3/uL (0.0-1.1) Eosinophils # (Auto) 0.0 x10^3/uL (0.0-0.7) Basophils # (Auto) 0.0 x10^3/uL (0.0-0.2) Prothrombin Time 14.7 SEC (11.7-14.0) Prothromb Time International Ratio 1.2 (0.8-1.1) Sodium Level 134 mmol/L (136-145) Potassium Level 3.4 mmol/L (3.5-5.1) Chloride Level 97 mmol/L (98-107) Carbon Dioxide Level 28 mmol/L (21-32) Anion Gap 9 (6-14) Blood Urea Nitrogen 9 mg/dL (8-26) Creatinine 0.8 mg/dL (0.7-1.3) Estimated GFR (Cockcroft-Gault) 100.7 BUN/Creatinine Ratio 11 (6-20) Glucose Level 177 mg/dL (70-99) Calcium Level 8.6 mg/dL (8.5-10.1) Total Bilirubin 1.3 mg/dL (0.2-1.0) Aspartate Amino Transf (AST/SGOT) 11 U/L (15-37) Alanine Aminotransferase (ALT/SGPT) 19 U/L (16-63) Alkaline Phosphatase 266 U/L (46-116) Total Protein 7.1 g/dL (6.4-8.2) Albumin 2.1 g/dL (3.4-5.0) Albumin/Globulin Ratio 0.4 (1.0-1.7) Vancomycin Level Trough 4.9 mcg/mL (10.0-20.0) Vancomycin Last Dose Date 02-17-17 Vancomycin Last Dose Time 0000 Test 02/17/17 20:18 Glucose (Fingerstick) 238 mg/dL (70-99) Problem List Problems Medical Problems: (1) Abscess Status: Acute Assessment/Plan will ask IR to drain cont abx Problems: KHADRA LUNA MD February 17, 2017 21:35
[2017-02-17 23:06] VITALS: BP 115/73
[2017-02-18 03:16] VITALS: BP 124/70
[2017-02-18] MEDS: VANCOMYCIN 1.5 GM in IV NORMAL SALINE 500ML BAG 500 ML IV SCH ×3 (05:37→20:47)
[2017-02-18 07:00] VITALS: BP 130/72
[2017-02-18] MEDS: LISINOPRIL 5 MG TABLET. PO SCH (08:26)
[2017-02-18] MEDS: INSULIN ASPART 300 UNITS/3 ML INSULN.PEN SQ SCH ×3 (08:30→16:45)
--- NOTE | 2017-02-18 08:36 | PDOC ---
JULIOCESAR ROMEO [employer] 02/18/17 0836: SURGICAL PROGRESS NOTE Subjective tolerating diet pain improved s/p perc drain yesterday Vital Signs Vital Signs Date Time Temp Pulse Resp B/P (MAP) Pulse Ox O2 Delivery O2 Flow Rate FiO2 02/18/17 08:26 75 130/72 02/18/17 07:35 Room Air 02/18/17 07:00 98.9 20 94 98.9 I&O Intake and Output 02/18/17 07:00 Intake Total 1400 ml Output Total 210 ml Balance 1190 ml Intake Oral 400 ml IV Total 1000 ml Drainage Total 210 ml # Voids 2 General: Alert, Oriented X3, Cooperative, No acute distress Abdomen: Soft, Other (ND, drain to right flank, seropurulent drainage ) Labs Laboratory Tests Test 02/16/17 11:26 02/16/17 16:52 02/16/17 20:48 02/17/17 08:02 Glucose (Fingerstick) 207 mg/dL (70-99) 209 mg/dL (70-99) 288 mg/dL (70-99) 219 mg/dL (70-99) Test 02/17/17 11:30 02/17/17 11:58 02/17/17 16:53 02/17/17 20:18 White Blood Count 20.6 x10^3/uL (4.0-11.0) Red Blood Count 4.15 x10^6/uL (4.30-5.70) Hemoglobin 12.1 g/dL (13.0-17.5) Hematocrit 35.0 % (39.0-53.0) Mean Corpuscular Volume 85 fL (79-100) Mean Corpuscular Hemoglobin 29 pg (25-35) Mean Corpuscular Hemoglobin Concent 35 g/dL (31-37) Red Cell Distribution Width 13.9 % (11.5-14.5) Platelet Count 400 x10^3/uL (140-400) Neutrophils (%) (Auto) 80 % (31-73) Lymphocytes (%) (Auto) 10 % (24-48) Monocytes (%) (Auto) 10 % (0-9) Eosinophils (%) (Auto) 0 % (0-3) Basophils (%) (Auto) 0 % (0-3) Neutrophils # (Auto) 16.5 x10^3uL (1.8-7.7) Lymphocytes # (Auto) 2.0 x10^3/uL (1.0-4.8) Monocytes # (Auto) 2.0 x10^3/uL (0.0-1.1) Eosinophils # (Auto) 0.0 x10^3/uL (0.0-0.7) Basophils # (Auto) 0.0 x10^3/uL (0.0-0.2) Prothrombin Time 14.7 SEC (11.7-14.0) Prothromb Time International Ratio 1.2 (0.8-1.1) Sodium Level 134 mmol/L (136-145) Potassium Level 3.4 mmol/L (3.5-5.1) Chloride Level 97 mmol/L (98-107) Carbon Dioxide Level 28 mmol/L (21-32) Anion Gap 9 (6-14) Blood Urea Nitrogen 9 mg/dL (8-26) Creatinine 0.8 mg/dL (0.7-1.3) Estimated GFR (Cockcroft-Gault) 100.7 BUN/Creatinine Ratio 11 (6-20) Glucose Level 177 mg/dL (70-99) Calcium Level 8.6 mg/dL (8.5-10.1) Total Bilirubin 1.3 mg/dL (0.2-1.0) Aspartate Amino Transf (AST/SGOT) 11 U/L (15-37) Alanine Aminotransferase (ALT/SGPT) 19 U/L (16-63) Alkaline Phosphatase 266 U/L (46-116) Total Protein 7.1 g/dL (6.4-8.2) Albumin 2.1 g/dL (3.4-5.0) Albumin/Globulin Ratio 0.4 (1.0-1.7) Vancomycin Level Trough 4.9 mcg/mL (10.0-20.0) Vancomycin Last Dose Date 02-17-17 Vancomycin Last Dose Time 0000 Glucose (Fingerstick) 174 mg/dL (70-99) 382 mg/dL (70-99) 238 mg/dL (70-99) Laboratory Tests Test 02/17/17 11:30 02/17/17 11:58 02/17/17 16:53 02/17/17 20:18 White Blood Count 20.6 x10^3/uL (4.0-11.0) Red Blood Count 4.15 x10^6/uL (4.30-5.70) Hemoglobin 12.1 g/dL (13.0-17.5) Hematocrit 35.0 % (39.0-53.0) Mean Corpuscular Volume 85 fL (79-100) Mean Corpuscular Hemoglobin 29 pg (25-35) Mean Corpuscular Hemoglobin Concent 35 g/dL (31-37) Red Cell Distribution Width 13.9 % (11.5-14.5) Platelet Count 400 x10^3/uL (140-400) Neutrophils (%) (Auto) 80 % (31-73) Lymphocytes (%) (Auto) 10 % (24-48) Monocytes (%) (Auto) 10 % (0-9) Eosinophils (%) (Auto) 0 % (0-3) Basophils (%) (Auto) 0 % (0-3) Neutrophils # (Auto) 16.5 x10^3uL (1.8-7.7) Lymphocytes # (Auto) 2.0 x10^3/uL (1.0-4.8) Monocytes # (Auto) 2.0 x10^3/uL (0.0-1.1) Eosinophils # (Auto) 0.0 x10^3/uL (0.0-0.7) Basophils # (Auto) 0.0 x10^3/uL (0.0-0.2) Prothrombin Time 14.7 SEC (11.7-14.0) Prothromb Time International Ratio 1.2 (0.8-1.1) Sodium Level 134 mmol/L (136-145) Potassium Level 3.4 mmol/L (3.5-5.1) Chloride Level 97 mmol/L (98-107) Carbon Dioxide Level 28 mmol/L (21-32) Anion Gap 9 (6-14) Blood Urea Nitrogen 9 mg/dL (8-26) Creatinine 0.8 mg/dL (0.7-1.3) Estimated GFR (Cockcroft-Gault) 100.7 BUN/Creatinine Ratio 11 (6-20) Glucose Level 177 mg/dL (70-99) Calcium Level 8.6 mg/dL (8.5-10.1) Total Bilirubin 1.3 mg/dL (0.2-1.0) Aspartate Amino Transf (AST/SGOT) 11 U/L (15-37) Alanine Aminotransferase (ALT/SGPT) 19 U/L (16-63) Alkaline Phosphatase 266 U/L (46-116) Total Protein 7.1 g/dL (6.4-8.2) Albumin 2.1 g/dL (3.4-5.0) Albumin/Globulin Ratio 0.4 (1.0-1.7) Vancomycin Level Trough 4.9 mcg/mL (10.0-20.0) Vancomycin Last Dose Date 02-17-17 Vancomycin Last Dose Time 0000 Glucose (Fingerstick) 174 mg/dL (70-99) 382 mg/dL (70-99) 238 mg/dL (70-99) Problem List Problems Medical Problems: (1) Abscess Status: Acute Assessment/Plan recurrent retroperitoneal abscess continue abx and drain Problems: KHADRA LUNA MD 02/18/17 1339: SURGICAL PROGRESS NOTE Assessment/Plan Pt seen and examined. Agree with Ms. Romeo's note Pt feels better s/p drain still significant erythema, induration cont abx and pain control Problems: JULIOCESAR ROMEO APRN February 18, 2017 08:36 KHADRA LUNA MD February 18, 2017 13:39
--- NOTE | 2017-02-18 09:58 | HP ---
ADMIT DATE: 02/15/2017 CHIEF COMPLAINT: Right flank abscesses. HISTORY OF PRESENT ILLNESS: The patient is a 56-year-old [place] gentleman with past medical history of diabetes as well as recurrent flank abscesses, who presented with the same complaint to the Emergency Room. He relates that symptoms essentially started on Sunday and it got worse and he decided to return to the Emergency Room. Pain is essentially the same area above his posterior iliac crest and wrapping around forward. Has pain, especially with moving. He denies any fevers or rigors. Appetite is okay. Denies any diarrhea. His history actually dates back 6-7 years ago when he had his first abscess which since then has recurred and has been treated surgically with incision and drainages multiple times. Most recently, he actually had undergone surgery in 09/2016 with ex-lap and wide drainage of retroperitoneal portion of the abscess. He had been treated with antibiotics for prolonged time with resolution of his symptoms up until now. PAST MEDICAL HISTORY: Diabetes mellitus, recurrent abscesses as above. FAMILY HISTORY: No significant disorders known in family. He has 11 siblings, healthy. 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 Quit smoking 10 years ago. No alcohol or drug use. ALLERGIES: No known drug allergies. MEDICATIONS: MAR reconciled with home meds. REVIEW OF SYSTEMS: Positive for pain in his flank, especially with moving. Rest of organ system review is negative. PHYSICAL EXAMINATION: VITAL SIGNS: From today show a blood pressure of 128/75, heart rate of 82, respiratory rate of 20. He is afebrile. GENERAL: This is a well-nourished 56-year-old [place] gentleman, alert and oriented, in no acute distress. HEENT: Shows no scleral icterus. NECK: Supple. LUNGS: Clear. HEART: Regular rate and rhythm. ABDOMEN: Has positive bowel sounds, soft, minimal tenderness in right lower quadrant flank above his pelvic crest with indurated firm painful erythematous patch of about 10 cm. EXTREMITIES: Show no edema. SKIN: Warm, soft and dry without any rash other than his cellulitis of the flank. LABORATORY DATA: CBC from today shows a WBC of 18.9, hemoglobin 12.5, platelets of 371. Chemistries with a BUN and creatinine of 13 and 0.8, sodium at 133, potassium 3.2. Blood glucoses in the 200+ range. Of note, electrolytes at admission had shown a sodium of 130, potassium of 3.6. LFTs with an elevation in alkaline phosphatase of 367, albumin at 2.7. IMAGING STUDIES: CT of the abdomen and pelvis, recurrent abscess right flank similar to the examination 5 months ago. The abscess communicates with the right retroperitoneum and manifests as air fluid collection measuring approximately 7 cm interposed between the iliac bone and psoas muscle. ASSESSMENT AND PLAN: The patient is a 56-year-old gentleman with unfortunately recurrent flank abscesses communicating with the retroperitoneum. He has undergone surgeries for this in the past and unfortunately, he is now presenting with same picture. Surgery has been consulted for intervention. He has been started on Zosyn and vancomycin. The bacterial species identified at his surgery in September with Klebsiella oxytoca essentially only resistant to piperacillin and ampicillin. We will therefore change his antibiotic coverage to Levaquin, which showed sensitivity. For his diabetes, we will continue home regimen. Control currently is poor, but this may be secondary to infection. Continue insulin sliding scale. Pain control is fair. Does require high dose IV morphine. We will give him the option of oxycodone 5-10 as well for longer duration of action. CHRIS HENRY MD DR: FERNANDA/klever JOB#: [id number] / [id number] DARIA
[2017-02-18 11:00] VITALS: BP 127/75
--- NOTE | 2017-02-18 13:28 | PDOC ---
PROGRESS NOTES Chief Complaint Chief Complaint Recurrent flank abscess with retroperit extension ASSESSMENT AND PLAN: 1. Abscess: s/p drain placement by [facility] on 02/17. fluid sent for culture, gram nalini with february WBC, no bacteria. cont current Abx regimen (6talored to previous sensitivities) 2. Pain control: adequate, offer oxycodone as first choice. 3. Leukocytosis: with left shift, c/w infection 4. DM: poorly controlled, prob 2/2 infection. increase levemir to 15, cont ISS 5. Hypokalemia 6. Prophylaxis: lovenox History of Present Illness History of Present Illness flank improved with drain, still hot and firm, but no pain Vitals Vitals Vital Signs Date Time Temp Pulse Resp B/P (MAP) Pulse Ox O2 Delivery O2 Flow Rate FiO2 02/18/17 11:00 98.4 74 20 127/75 (92) 95 Room Air 98.4 Physical Exam General: Alert, Oriented X3, Cooperative, No acute distress Heart: Regular rate, No murmurs Lungs: Clear Abdomen: Soft, Other (ND, drain to right flank, seropurulent drainage ) Extremities: No clubbing, No cyanosis, No edema Skin: No rashes Labs LABS Laboratory Tests Test 02/17/17 16:53 02/17/17 20:18 02/18/17 07:23 02/18/17 11:12 Glucose (Fingerstick) 382 mg/dL (70-99) 238 mg/dL (70-99) 184 mg/dL (70-99) 271 mg/dL (70-99) Test 02/18/17 12:25 Vancomycin Level Trough 16.1 mcg/mL (10.0-20.0) Vancomycin Last Dose Date T Vancomycin Last Dose Time 0500 CHRIS HENRY MD February 18, 2017 13:28
[2017-02-18] MEDS: VANCOMYCIN PER PHARMACY MC PRN ×2 (13:32→13:44)
[2017-02-18 15:00] VITALS: BP 131/78
[2017-02-18] MEDS: metFORMIN 500 MG TABLET PO SCH (16:43)
[2017-02-18 19:30] VITALS: BP 130/77
[2017-02-18] MEDS: INSULIN DETEMIR 300 UNITS/3 ML INSULN.PEN. SQ SCH (20:51)
[2017-02-18 23:00] VITALS: BP 132/77
[2017-02-19 03:00] VITALS: BP 119/73
[2017-02-19 04:04] LABS: BASO # 0.1 x10^3/uL (0.0-0.2); BASO % 1 % (0-3); EOS % 3 % (0-3); HEMATOCRIT 34.7 % (39.0-53.0); HEMOGLOBIN 12.2 g/dL (13.0-17.5); LYMPH # 1.8 x10^3/uL (1.0-4.8); LYMPH % 18 % (24-48); MEAN CORPUSCULAR HEMOGLOBIN 30 pg (25-35); MEAN CORPUSCULAR HGB CONC 35 g/dL (31-37); MEAN CORPUSCULAR VOLUME 85 fL (79-100); MONO % 9 % (0-9); NEUT % 70 % (31-73); PLATELET COUNT 457 x10^3/uL (140-400); RED BLOOD COUNT 4.07 x10^6/uL (4.30-5.70); RED CELL DISTRIBUTION WIDTH 14.1 % (11.5-14.5); WHITE BLOOD COUNT 10.3 x10^3/uL (4.0-11.0)
[2017-02-19 04:13] LABS: CALCIUM 8.5 mg/dL (8.5-10.1); CREATININE 0.7 mg/dL (0.7-1.3); GFR 117.5; POTASSIUM 3.4 mmol/L (3.5-5.1)
[2017-02-19] MEDS: VANCOMYCIN 1.5 GM in IV NORMAL SALINE 500ML BAG 500 ML IV SCH ×3 (05:28→20:57)
[2017-02-19 07:00] VITALS: BP 129/80
[2017-02-19] MEDS: metFORMIN 500 MG TABLET PO SCH ×2 (08:29→17:26)
[2017-02-19] MEDS: LISINOPRIL 5 MG TABLET. PO SCH (08:30)
[2017-02-19] MEDS: INSULIN ASPART 300 UNITS/3 ML INSULN.PEN SQ SCH ×3 (08:43→17:31)
--- NOTE | 2017-02-19 10:13 | PDOC ---
PROGRESS NOTES Chief Complaint Chief Complaint Recurrent flank abscess with retroperitoneal extension 1. Abscess: s/p drain placement by [facility] on 02/17. fluid sent for culture, gram nalini with february WBC, no bacteria. cont current Abx regimen 2. Pain control: adequate, offer oxycodone as first choice. 3. Leukocytosis: with left shift, c/w infection 4. DM: poorly controlled, prob 2/2 infection. increase levemir to 15, cont ISS 5. Hypokalemia 6. Prophylaxis: lovenox History of Present Illness History of Present Illness flank improved with drain, still hot and firm, but no pain Vitals Vitals Vital Signs Date Time Temp Pulse Resp B/P (MAP) Pulse Ox O2 Delivery O2 Flow Rate FiO2 02/19/17 08:30 68 129/80 02/19/17 08:15 Room Air 02/19/17 07:00 98.4 20 94 98.4 Physical Exam General: Alert, Oriented X3, Cooperative, No acute distress Heart: Regular rate, No murmurs Lungs: Clear Abdomen: Soft, Other (ND, drain to right flank, seropurulent drainage ) Extremities: No clubbing, No cyanosis, No edema Skin: No rashes Labs LABS Laboratory Tests Test 02/18/17 11:12 02/18/17 12:25 02/18/17 16:27 02/18/17 20:56 Glucose (Fingerstick) 271 mg/dL (70-99) 205 mg/dL (70-99) 256 mg/dL (70-99) Vancomycin Level Trough 16.1 mcg/mL (10.0-20.0) Vancomycin Last Dose Date T Vancomycin Last Dose Time 0500 Test 02/19/17 02:45 02/19/17 07:36 White Blood Count 10.3 x10^3/uL (4.0-11.0) Red Blood Count 4.07 x10^6/uL (4.30-5.70) Hemoglobin 12.2 g/dL (13.0-17.5) Hematocrit 34.7 % (39.0-53.0) Mean Corpuscular Volume 85 fL (79-100) Mean Corpuscular Hemoglobin 30 pg (25-35) Mean Corpuscular Hemoglobin Concent 35 g/dL (31-37) Red Cell Distribution Width 14.1 % (11.5-14.5) Platelet Count 457 x10^3/uL (140-400) Neutrophils (%) (Auto) 70 % (31-73) Lymphocytes (%) (Auto) 18 % (24-48) Monocytes (%) (Auto) 9 % (0-9) Eosinophils (%) (Auto) 3 % (0-3) Basophils (%) (Auto) 1 % (0-3) Neutrophils # (Auto) 7.2 x10^3uL (1.8-7.7) Lymphocytes # (Auto) 1.8 x10^3/uL (1.0-4.8) Monocytes # (Auto) 0.9 x10^3/uL (0.0-1.1) Eosinophils # (Auto) 0.3 x10^3/uL (0.0-0.7) Basophils # (Auto) 0.1 x10^3/uL (0.0-0.2) Sodium Level 138 mmol/L (136-145) Potassium Level 3.4 mmol/L (3.5-5.1) Chloride Level 102 mmol/L (98-107) Carbon Dioxide Level 26 mmol/L (21-32) Anion Gap 10 (6-14) Blood Urea Nitrogen 11 mg/dL (8-26) Creatinine 0.7 mg/dL (0.7-1.3) Estimated GFR (Cockcroft-Gault) 117.5 Glucose Level 238 mg/dL (70-99) Calcium Level 8.5 mg/dL (8.5-10.1) Glucose (Fingerstick) 204 mg/dL (70-99) Review of Systems Review of Systems no n.,vd + chills and sweats Assessment and Plan Assessmemt and Plan Problems Medical Problems: (1) Abscess Status: Acute Problems: Comment Review of Relevant I have reviewed the following items lauren (where applicable) has been applied. Labs Laboratory Tests Test 02/17/17 11:30 02/17/17 11:58 02/17/17 16:53 02/17/17 20:18 White Blood Count 20.6 x10^3/uL (4.0-11.0) Red Blood Count 4.15 x10^6/uL (4.30-5.70) Hemoglobin 12.1 g/dL (13.0-17.5) Hematocrit 35.0 % (39.0-53.0) Mean Corpuscular Volume 85 fL (79-100) Mean Corpuscular Hemoglobin 29 pg (25-35) Mean Corpuscular Hemoglobin Concent 35 g/dL (31-37) Red Cell Distribution Width 13.9 % (11.5-14.5) Platelet Count 400 x10^3/uL (140-400) Neutrophils (%) (Auto) 80 % (31-73) Lymphocytes (%) (Auto) 10 % (24-48) Monocytes (%) (Auto) 10 % (0-9) Eosinophils (%) (Auto) 0 % (0-3) Basophils (%) (Auto) 0 % (0-3) Neutrophils # (Auto) 16.5 x10^3uL (1.8-7.7) Lymphocytes # (Auto) 2.0 x10^3/uL (1.0-4.8) Monocytes # (Auto) 2.0 x10^3/uL (0.0-1.1) Eosinophils # (Auto) 0.0 x10^3/uL (0.0-0.7) Basophils # (Auto) 0.0 x10^3/uL (0.0-0.2) Prothrombin Time 14.7 SEC (11.7-14.0) Prothromb Time International Ratio 1.2 (0.8-1.1) Sodium Level 134 mmol/L (136-145) Potassium Level 3.4 mmol/L (3.5-5.1) Chloride Level 97 mmol/L (98-107) Carbon Dioxide Level 28 mmol/L (21-32) Anion Gap 9 (6-14) Blood Urea Nitrogen 9 mg/dL (8-26) Creatinine 0.8 mg/dL (0.7-1.3) Estimated GFR (Cockcroft-Gault) 100.7 BUN/Creatinine Ratio 11 (6-20) Glucose Level 177 mg/dL (70-99) Calcium Level 8.6 mg/dL (8.5-10.1) Total Bilirubin 1.3 mg/dL (0.2-1.0) Aspartate Amino Transf (AST/SGOT) 11 U/L (15-37) Alanine Aminotransferase (ALT/SGPT) 19 U/L (16-63) Alkaline Phosphatase 266 U/L (46-116) Total Protein 7.1 g/dL (6.4-8.2) Albumin 2.1 g/dL (3.4-5.0) Albumin/Globulin Ratio 0.4 (1.0-1.7) Vancomycin Level Trough 4.9 mcg/mL (10.0-20.0) Vancomycin Last Dose Date 02-17-17 Vancomycin Last Dose Time 0000 Glucose (Fingerstick) 174 mg/dL (70-99) 382 mg/dL (70-99) 238 mg/dL (70-99) Test 02/18/17 07:23 02/18/17 11:12 02/18/17 12:25 02/18/17 16:27 Glucose (Fingerstick) 184 mg/dL (70-99) 271 mg/dL (70-99) 205 mg/dL (70-99) Vancomycin Level Trough 16.1 mcg/mL (10.0-20.0) Vancomycin Last Dose Date T Vancomycin Last Dose Time 0500 Test 02/18/17 20:56 02/19/17 02:45 02/19/17 07:36 Glucose (Fingerstick) 256 mg/dL (70-99) 204 mg/dL (70-99) White Blood Count 10.3 x10^3/uL (4.0-11.0) Red Blood Count 4.07 x10^6/uL (4.30-5.70) Hemoglobin 12.2 g/dL (13.0-17.5) Hematocrit 34.7 % (39.0-53.0) Mean Corpuscular Volume 85 fL (79-100) Mean Corpuscular Hemoglobin 30 pg (25-35) Mean Corpuscular Hemoglobin Concent 35 g/dL (31-37) Red Cell Distribution Width 14.1 % (11.5-14.5) Platelet Count 457 x10^3/uL (140-400) Neutrophils (%) (Auto) 70 % (31-73) Lymphocytes (%) (Auto) 18 % (24-48) Monocytes (%) (Auto) 9 % (0-9) Eosinophils (%) (Auto) 3 % (0-3) Basophils (%) (Auto) 1 % (0-3) Neutrophils # (Auto) 7.2 x10^3uL (1.8-7.7) Lymphocytes # (Auto) 1.8 x10^3/uL (1.0-4.8) Monocytes # (Auto) 0.9 x10^3/uL (0.0-1.1) Eosinophils # (Auto) 0.3 x10^3/uL (0.0-0.7) Basophils # (Auto) 0.1 x10^3/uL (0.0-0.2) Sodium Level 138 mmol/L (136-145) Potassium Level 3.4 mmol/L (3.5-5.1) Chloride Level 102 mmol/L (98-107) Carbon Dioxide Level 26 mmol/L (21-32) Anion Gap 10 (6-14) Blood Urea Nitrogen 11 mg/dL (8-26) Creatinine 0.7 mg/dL (0.7-1.3) Estimated GFR (Cockcroft-Gault) 117.5 Glucose Level 238 mg/dL (70-99) Calcium Level 8.5 mg/dL (8.5-10.1) Laboratory Tests Test 02/18/17 11:12 02/18/17 12:25 02/18/17 16:27 02/18/17 20:56 Glucose (Fingerstick) 271 mg/dL (70-99) 205 mg/dL (70-99) 256 mg/dL (70-99) Vancomycin Level Trough 16.1 mcg/mL (10.0-20.0) Vancomycin Last Dose Date T Vancomycin Last Dose Time 0500 Test 02/19/17 02:45 02/19/17 07:36 White Blood Count 10.3 x10^3/uL (4.0-11.0) Red Blood Count 4.07 x10^6/uL (4.30-5.70) Hemoglobin 12.2 g/dL (13.0-17.5) Hematocrit 34.7 % (39.0-53.0) Mean Corpuscular Volume 85 fL (79-100) Mean Corpuscular Hemoglobin 30 pg (25-35) Mean Corpuscular Hemoglobin Concent 35 g/dL (31-37) Red Cell Distribution Width 14.1 % (11.5-14.5) Platelet Count 457 x10^3/uL (140-400) Neutrophils (%) (Auto) 70 % (31-73) Lymphocytes (%) (Auto) 18 % (24-48) Monocytes (%) (Auto) 9 % (0-9) Eosinophils (%) (Auto) 3 % (0-3) Basophils (%) (Auto) 1 % (0-3) Neutrophils # (Auto) 7.2 x10^3uL (1.8-7.7) Lymphocytes # (Auto) 1.8 x10^3/uL (1.0-4.8) Monocytes # (Auto) 0.9 x10^3/uL (0.0-1.1) Eosinophils # (Auto) 0.3 x10^3/uL (0.0-0.7) Basophils # (Auto) 0.1 x10^3/uL (0.0-0.2) Sodium Level 138 mmol/L (136-145) Potassium Level 3.4 mmol/L (3.5-5.1) Chloride Level 102 mmol/L (98-107) Carbon Dioxide Level 26 mmol/L (21-32) Anion Gap 10 (6-14) Blood Urea Nitrogen 11 mg/dL (8-26) Creatinine 0.7 mg/dL (0.7-1.3) Estimated GFR (Cockcroft-Gault) 117.5 Glucose Level 238 mg/dL (70-99) Calcium Level 8.5 mg/dL (8.5-10.1) Glucose (Fingerstick) 204 mg/dL (70-99) Microbiology 02/15/17 Blood Culture - Preliminary, Resulted NO GROWTH AFTER 3 DAYS 02/17/17 Anaerobic/Aerobic Culture, Resulted Pending 02/17/17 Anaerobic Culture Result 1 (COURT), Resulted Pending 02/17/17 Aerobic Culture - Preliminary, Resulted 02/17/17 Aerobic Culture Result 1 (COURT) - Preliminary, Resulted Medications Current Medications Acetaminophen (Tylenol) 650 mg 1X ONCE PO Last administered on 02/15/17 21:52 ; Start 02/15/17 at 21:45; Stop 02/15/17 at 21:46; Status DC Sodium Chloride 1,000 ml @ 125 mls/hr Q8H IV Last administered on 02/16/17t 15 :14; Start 02/15/17 at 22:33; Stop 02/16/17 at 22:32; Status DC Vancomycin HCl (Vanco Per Pharmacy) 1 each PRN DAILY PRN MC SEE COMMENTS Last administered on 02/18/17 13:44; Start 02/15/17 at 22:45 Piperacillin Sod/ Tazobactam Sod (Zosyn Per Pharmacy) 1 each PRN DAILY PRN MC SEE COMMENTS; Start 02/15/17 at 22:45; Status Cancel Vancomycin HCl 2 gm/Sodium Chloride 500 ml @ 250 mls/hr 1X ONCE IV Last administered on 02/16/17 00:06; Start 02/15/17 at 23:00; Stop 02/16/17 at 00:59 ; Status DC Piperacillin Sod/ Tazobactam Sod 3.375 gm/Sodium Chloride 50 ml @ 100 mls/hr Q6HRS IV Last administered on 02/16/17 12:01; Start 02/16/17 at 00:00; Stop at 15:14; Status DC Morphine Sulfate 4 mg 1X ONCE IV Last administered on 02/15/17 22:56; Start 02/15/17 at 23:00; Stop 02/15/17 at 23:01; Status DC Insulin Aspart (NovoLOG) 0-7 UNITS TIDWMEALS SQ Last administered on 02/16/17 17:54; Start 02/16/17 at 08:00; Stop 02/16/17 at 18:51; Status DC Dextrose (Dextrose 50%-Water Syringe) 12.5 gm PRN Q15MIN PRN IV SEE COMMENTS; Start 02/16/17 at 01:30 Morphine Sulfate 4 mg PRN Q2HR PRN IV SEVERE PAIN Last administered on 12:06; Start 02/16/17 at 01:30 Vancomycin HCl 1.25 gm/Sodium Chloride 250 ml @ 167 mls/hr Q12H IV Last administered on 02/17/17 00:19; Start 02/16/17 at 12:00; Stop 02/17/17 at 12:38 ; Status DC Vancomycin HCl 1 each 1X ONCE MC Last administered on 02/17/17 11:30; Start 02/17/17 at 11:30; Stop 02/17/17 at 11:31; Status DC Insulin Aspart (NovoLOG) 0-7 UNITS 1X ONCE SQ Last administered on 02/16/17 04:10; Start 02/16/17 at 03:00; Stop 02/16/17 at 03:01; Status DC Iohexol (Omnipaque 240 Mg/ml) 30 ml 1X ONCE PO Last administered on 02/16/17 12:00; Start 02/16/17 at 12:00; Stop 02/16/17 at 12:01; Status DC Iohexol (Omnipaque 300 Mg/ml) 75 ml 1X ONCE IV Last administered on 02/16/17 12:59; Start 02/16/17 at 12:00; Stop 02/16/17 at 12:01; Status DC Info (Do NOT chart on this entry -- for MONITORING) 1 each PRN DAILY PRN MC SEE COMMENTS; Start 02/16/17 at 12:00; Stop 02/18/17 at 11:59; Status DC Oxycodone HCl (Roxicodone) 5 mg PRN Q6HRS PRN PO PAIN Last administered on 02/17 16:08; Start 02/16/17 at 15:00 Oxycodone HCl (Roxicodone) 10 mg PRN Q6HRS PRN PO PAIN Last administered on 22:13; Start 02/16/17 at 15:00 Insulin Detemir (Levemir) 10 units QHS SQ Last administered on 02/17/17 21:11 ; Start 02/16/17 at 21:00; Stop 02/18/17 at 13:27; Status DC Lisinopril (Prinivil) 5 mg DAILY PO Last administered on 02/19/17 08:30; Start 02/17/17 at 09:00 Metformin HCl (Glucophage) 1,000 mg BIDWMEALS PO Last administered on 08:29; Start 02/18/17 at 17:00 Insulin Aspart (NovoLOG) 0-7 UNITS TIDWMEALS SQ Last administered on 02/17/17 08:41; Start 02/16/17 at 17:00; Stop 02/17/17 at 17:02; Status DC Dextrose (Dextrose 50%-Water Syringe) 12.5 gm PRN Q15MIN PRN IV SEE COMMENTS; Start 02/16/17 at 15:15; Status Cancel Levofloxacin/ Dextrose 100 ml @ 100 mls/hr Q24H IV Last administered on 16:41; Start 02/16/17 at 16:00 Lidocaine/Sodium Bicarbonate (Buffered Lidocaine 1%) 20 ml STK-MED ONCE IJ ; Start 02/17/17 at 12:31; Stop 02/17/17 at 12:32; Status DC Midazolam HCl (Versed) 2 mg STK-MED ONCE .ROUTE ; Start 02/17/17 at 12:32; Stop 02/17/17 at 12:33; Status DC Fentanyl Citrate (Fentanyl 2ml Vial) 100 mcg STK-MED ONCE .ROUTE ; Start at 12:32; Stop 02/17/17 at 12:33; Status DC Vancomycin HCl 1.5 gm/Sodium Chloride 500 ml @ 250 mls/hr Q8H IV Last administered on 02/19/17 05:28; Start 02/17/17 at 13:00 Vancomycin HCl 1 each 1X ONCE MC Last administered on 02/18/17 12:28; Start 02/18/17 at 12:30; Stop 02/18/17 at 12:31; Status DC Lidocaine/Sodium Bicarbonate (Buffered Lidocaine 1%) 20 ml 1X ONCE IJ Last administered on 02/17/17 13:13; Start 02/17/17 at 13:00; Stop 02/17/17 at 13:02 ; Status DC Insulin Aspart (NovoLOG) 10 units 1X ONCE SQ Last administered on 02/17/17 17 :14; Start 02/17/17 at 17:15; Stop 02/17/17 at 17:16; Status DC Insulin Aspart (NovoLOG) 0-9 UNITS TIDWMEALS SQ Last administered on 02/19/17 08:43; Start 02/18/17 at 08:00 Insulin Detemir (Levemir) 15 units QHS SQ Last administered on 02/18/17 20:51 ; Start 02/18/17 at 21:00 Active Scripts Active Lisinopril 5 Mg Tablet 5 Mg PO DAILY Oxycodone-Acetaminophen 10-325 (Oxycodone Hcl/Acetaminophen) 1 Each Tablet 1 Tab PO PRN Q12HR PRN Flagyl (Metronidazole) 500 Mg Tablet 500 Mg PO Q12HR Cefpodoxime Proxetil 200 Mg Tablet 200 Mg PO BID Levemir Flextouch (Insulin Detemir) 100 Unit/1 Ml Insuln.pen 10 Units SQ QHS Reported Metformin Hcl 500 Mg Tablet 2 Tab PO BID Vitals/I & O Vital Sign - Last 24 Hours 02/18/17 02/18/17 02/18/17 02/18/17 11:00 15:00 19:30 19:30 Temp 98.4 98.7 98.9 98.4 98.7 98.9 Pulse 74 77 80 Resp 20 20 B/P (MAP) 127/75 (92) 131/78 (95) 130/77 (94) Pulse Ox 95 96 94 O2 Delivery Room Air Room Air Room Air Room Air 02/18/17 02/19/17 02/19/17 02/19/17 23:00 03:00 07:00 08:15 Temp 98.5 98.6 98.4 98.5 98.6 98.4 Pulse 76 68 68 Resp 20 B/P (MAP) 132/77 (95) 119/73 (88) 129/80 (96) Pulse Ox 97 95 94 O2 Delivery Room Air Room Air Room Air Room Air 02/19/17 08:30 Pulse 68 B/P (MAP) 129/80 Intake and Output 02/18/17 02/18/17 02/19/17 15:00 23:00 07:00 Output Total 60 ml Balance -60 ml BETHANY ALVARENGA MD February 19, 2017 10:13
[2017-02-19] MEDS: VANCOMYCIN PER PHARMACY MC PRN (10:48)
[2017-02-19 11:00] VITALS: BP 134/60
--- NOTE | 2017-02-19 11:14 | PDOC ---
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 1114: SURGICAL PROGRESS NOTE Subjective feeling better denies pain Vital Signs Vital Signs Date Time Temp Pulse Resp B/P (MAP) Pulse Ox O2 Delivery O2 Flow Rate FiO2 02/19/17 08:30 68 129/80 02/19/17 08:15 Room Air 02/19/17 07:00 98.4 20 94 98.4 I&O Intake and Output 02/19/17 06:59 Output Total 60 ml Balance -60 ml Drainage Total 60 ml # Voids 5 # Bowel Movements 1 General: Alert, Oriented X3, Cooperative, No acute distress Abdomen: Soft, Other (right flank still indurated, less erythema, drain in place) Labs Laboratory Tests Test 02/17/17 11:30 02/17/17 11:58 02/17/17 16:53 02/17/17 20:18 White Blood Count 20.6 x10^3/uL (4.0-11.0) Red Blood Count 4.15 x10^6/uL (4.30-5.70) Hemoglobin 12.1 g/dL (13.0-17.5) Hematocrit 35.0 % (39.0-53.0) Mean Corpuscular Volume 85 fL (79-100) Mean Corpuscular Hemoglobin 29 pg (25-35) Mean Corpuscular Hemoglobin Concent 35 g/dL (31-37) Red Cell Distribution Width 13.9 % (11.5-14.5) Platelet Count 400 x10^3/uL (140-400) Neutrophils (%) (Auto) 80 % (31-73) Lymphocytes (%) (Auto) 10 % (24-48) Monocytes (%) (Auto) 10 % (0-9) Eosinophils (%) (Auto) 0 % (0-3) Basophils (%) (Auto) 0 % (0-3) Neutrophils # (Auto) 16.5 x10^3uL (1.8-7.7) Lymphocytes # (Auto) 2.0 x10^3/uL (1.0-4.8) Monocytes # (Auto) 2.0 x10^3/uL (0.0-1.1) Eosinophils # (Auto) 0.0 x10^3/uL (0.0-0.7) Basophils # (Auto) 0.0 x10^3/uL (0.0-0.2) Prothrombin Time 14.7 SEC (11.7-14.0) Prothromb Time International Ratio 1.2 (0.8-1.1) Sodium Level 134 mmol/L (136-145) Potassium Level 3.4 mmol/L (3.5-5.1) Chloride Level 97 mmol/L (98-107) Carbon Dioxide Level 28 mmol/L (21-32) Anion Gap 9 (6-14) Blood Urea Nitrogen 9 mg/dL (8-26) Creatinine 0.8 mg/dL (0.7-1.3) Estimated GFR (Cockcroft-Gault) 100.7 BUN/Creatinine Ratio 11 (6-20) Glucose Level 177 mg/dL (70-99) Calcium Level 8.6 mg/dL (8.5-10.1) Total Bilirubin 1.3 mg/dL (0.2-1.0) Aspartate Amino Transf (AST/SGOT) 11 U/L (15-37) Alanine Aminotransferase (ALT/SGPT) 19 U/L (16-63) Alkaline Phosphatase 266 U/L (46-116) Total Protein 7.1 g/dL (6.4-8.2) Albumin 2.1 g/dL (3.4-5.0) Albumin/Globulin Ratio 0.4 (1.0-1.7) Vancomycin Level Trough 4.9 mcg/mL (10.0-20.0) Vancomycin Last Dose Date 02-17-17 Vancomycin Last Dose Time 0000 Glucose (Fingerstick) 174 mg/dL (70-99) 382 mg/dL (70-99) 238 mg/dL (70-99) Test 02/18/17 07:23 02/18/17 11:12 02/18/17 12:25 02/18/17 16:27 Glucose (Fingerstick) 184 mg/dL (70-99) 271 mg/dL (70-99) 205 mg/dL (70-99) Vancomycin Level Trough 16.1 mcg/mL (10.0-20.0) Vancomycin Last Dose Date T Vancomycin Last Dose Time 0500 Test 02/18/17 20:56 02/19/17 02:45 02/19/17 07:36 Glucose (Fingerstick) 256 mg/dL (70-99) 204 mg/dL (70-99) White Blood Count 10.3 x10^3/uL (4.0-11.0) Red Blood Count 4.07 x10^6/uL (4.30-5.70) Hemoglobin 12.2 g/dL (13.0-17.5) Hematocrit 34.7 % (39.0-53.0) Mean Corpuscular Volume 85 fL (79-100) Mean Corpuscular Hemoglobin 30 pg (25-35) Mean Corpuscular Hemoglobin Concent 35 g/dL (31-37) Red Cell Distribution Width 14.1 % (11.5-14.5) Platelet Count 457 x10^3/uL (140-400) Neutrophils (%) (Auto) 70 % (31-73) Lymphocytes (%) (Auto) 18 % (24-48) Monocytes (%) (Auto) 9 % (0-9) Eosinophils (%) (Auto) 3 % (0-3) Basophils (%) (Auto) 1 % (0-3) Neutrophils # (Auto) 7.2 x10^3uL (1.8-7.7) Lymphocytes # (Auto) 1.8 x10^3/uL (1.0-4.8) Monocytes # (Auto) 0.9 x10^3/uL (0.0-1.1) Eosinophils # (Auto) 0.3 x10^3/uL (0.0-0.7) Basophils # (Auto) 0.1 x10^3/uL (0.0-0.2) Sodium Level 138 mmol/L (136-145) Potassium Level 3.4 mmol/L (3.5-5.1) Chloride Level 102 mmol/L (98-107) Carbon Dioxide Level 26 mmol/L (21-32) Anion Gap 10 (6-14) Blood Urea Nitrogen 11 mg/dL (8-26) Creatinine 0.7 mg/dL (0.7-1.3) Estimated GFR (Cockcroft-Gault) 117.5 Glucose Level 238 mg/dL (70-99) Calcium Level 8.5 mg/dL (8.5-10.1) Laboratory Tests Test 02/18/17 12:25 02/18/17 16:27 02/18/17 20:56 02/19/17 02:45 Vancomycin Level Trough 16.1 mcg/mL (10.0-20.0) Vancomycin Last Dose Date T Vancomycin Last Dose Time 0500 Glucose (Fingerstick) 205 mg/dL (70-99) 256 mg/dL (70-99) White Blood Count 10.3 x10^3/uL (4.0-11.0) Red Blood Count 4.07 x10^6/uL (4.30-5.70) Hemoglobin 12.2 g/dL (13.0-17.5) Hematocrit 34.7 % (39.0-53.0) Mean Corpuscular Volume 85 fL (79-100) Mean Corpuscular Hemoglobin 30 pg (25-35) Mean Corpuscular Hemoglobin Concent 35 g/dL (31-37) Red Cell Distribution Width 14.1 % (11.5-14.5) Platelet Count 457 x10^3/uL (140-400) Neutrophils (%) (Auto) 70 % (31-73) Lymphocytes (%) (Auto) 18 % (24-48) Monocytes (%) (Auto) 9 % (0-9) Eosinophils (%) (Auto) 3 % (0-3) Basophils (%) (Auto) 1 % (0-3) Neutrophils # (Auto) 7.2 x10^3uL (1.8-7.7) Lymphocytes # (Auto) 1.8 x10^3/uL (1.0-4.8) Monocytes # (Auto) 0.9 x10^3/uL (0.0-1.1) Eosinophils # (Auto) 0.3 x10^3/uL (0.0-0.7) Basophils # (Auto) 0.1 x10^3/uL (0.0-0.2) Sodium Level 138 mmol/L (136-145) Potassium Level 3.4 mmol/L (3.5-5.1) Chloride Level 102 mmol/L (98-107) Carbon Dioxide Level 26 mmol/L (21-32) Anion Gap 10 (6-14) Blood Urea Nitrogen 11 mg/dL (8-26) Creatinine 0.7 mg/dL (0.7-1.3) Estimated GFR (Cockcroft-Gault) 117.5 Glucose Level 238 mg/dL (70-99) Calcium Level 8.5 mg/dL (8.5-10.1) Test 02/19/17 07:36 Glucose (Fingerstick) 204 mg/dL (70-99) Problem List Problems Medical Problems: (1) Abscess Status: Acute Assessment/Plan continue drain, abx Problems: KHADRA LUNA MD 02/19/17 1508: SURGICAL PROGRESS NOTE Assessment/Plan Pt seen and examined. Agree with Ms. Romeo's note Pt feels better WBC improved, persistent induration right flank cont drain and abx Problems: JULIOCESAR ROMEO APRN February 19, 2017 11:14 KHADRA LUNA MD February 19, 2017 15:08
[2017-02-19 15:00] VITALS: BP 146/79
[2017-02-19 19:28] VITALS: BP 139/73
[2017-02-19] MEDS: INSULIN DETEMIR 300 UNITS/3 ML INSULN.PEN. SQ SCH (21:01)
[2017-02-19 22:29] VITALS: BP 134/76
[2017-02-20 03:12] LABS: BASO # 0.1 x10^3/uL (0.0-0.2); BASO % 1 % (0-3); EOS % 3 % (0-3); HEMATOCRIT 36.3 % (39.0-53.0); HEMOGLOBIN 12.4 g/dL (13.0-17.5); LYMPH % 22 % (24-48); MEAN CORPUSCULAR HEMOGLOBIN 29 pg (25-35); MEAN CORPUSCULAR HGB CONC 34 g/dL (31-37); MEAN CORPUSCULAR VOLUME 86 fL (79-100); MONO % 9 % (0-9); NEUT % 66 % (31-73); PLATELET COUNT 521 x10^3/uL (140-400); RED BLOOD COUNT 4.22 x10^6/uL (4.30-5.70); RED CELL DISTRIBUTION WIDTH 14.2 % (11.5-14.5); WHITE BLOOD COUNT 9.3 x10^3/uL (4.0-11.0)
[2017-02-20 03:26] LABS: CALCIUM 8.8 mg/dL (8.5-10.1); CREATININE 0.7 mg/dL (0.7-1.3); GFR 117.5; POTASSIUM 3.4 mmol/L (3.5-5.1)
[2017-02-20 03:35] VITALS: BP 132/81
[2017-02-20] MEDS: VANCOMYCIN 1.5 GM in IV NORMAL SALINE 500ML BAG 500 ML IV SCH (05:15)
[2017-02-20 07:00] VITALS: BP 135/79
[2017-02-20] MEDS: metFORMIN 500 MG TABLET PO SCH ×2 (08:36→17:07)
[2017-02-20] MEDS: LISINOPRIL 5 MG TABLET. PO SCH (08:36)
[2017-02-20] MEDS: INSULIN ASPART 300 UNITS/3 ML INSULN.PEN SQ SCH ×3 (08:40→17:12)
--- NOTE | 2017-02-20 09:32 | PDOC ---
SURGICAL PROGRESS NOTE Subjective Pt feels better Vital Signs Vital Signs Date Time Temp Pulse Resp B/P (MAP) Pulse Ox O2 Delivery O2 Flow Rate FiO2 02/20/17 08:36 67 135/79 02/20/17 07:00 98.1 18 95 Room Air 98.1 I&O Intake and Output 02/20/17 07:00 Intake Total 360 ml Output Total 65 ml Balance 295 ml Intake Oral 360 ml Drainage Total 65 ml # Voids 2 General: Alert, Oriented X3, Cooperative, No acute distress Abdomen: Soft, Other (less erythema and induration, drain in place) Labs Laboratory Tests Test 02/18/17 11:12 02/18/17 12:25 02/18/17 16:27 02/18/17 20:56 Glucose (Fingerstick) 271 mg/dL (70-99) 205 mg/dL (70-99) 256 mg/dL (70-99) Vancomycin Level Trough 16.1 mcg/mL (10.0-20.0) Vancomycin Last Dose Date T Vancomycin Last Dose Time 0500 Test 02/19/17 02:45 02/19/17 07:36 02/19/17 12:00 02/19/17 17:16 White Blood Count 10.3 x10^3/uL (4.0-11.0) Red Blood Count 4.07 x10^6/uL (4.30-5.70) Hemoglobin 12.2 g/dL (13.0-17.5) Hematocrit 34.7 % (39.0-53.0) Mean Corpuscular Volume 85 fL (79-100) Mean Corpuscular Hemoglobin 30 pg (25-35) Mean Corpuscular Hemoglobin Concent 35 g/dL (31-37) Red Cell Distribution Width 14.1 % (11.5-14.5) Platelet Count 457 x10^3/uL (140-400) Neutrophils (%) (Auto) 70 % (31-73) Lymphocytes (%) (Auto) 18 % (24-48) Monocytes (%) (Auto) 9 % (0-9) Eosinophils (%) (Auto) 3 % (0-3) Basophils (%) (Auto) 1 % (0-3) Neutrophils # (Auto) 7.2 x10^3uL (1.8-7.7) Lymphocytes # (Auto) 1.8 x10^3/uL (1.0-4.8) Monocytes # (Auto) 0.9 x10^3/uL (0.0-1.1) Eosinophils # (Auto) 0.3 x10^3/uL (0.0-0.7) Basophils # (Auto) 0.1 x10^3/uL (0.0-0.2) Sodium Level 138 mmol/L (136-145) Potassium Level 3.4 mmol/L (3.5-5.1) Chloride Level 102 mmol/L (98-107) Carbon Dioxide Level 26 mmol/L (21-32) Anion Gap 10 (6-14) Blood Urea Nitrogen 11 mg/dL (8-26) Creatinine 0.7 mg/dL (0.7-1.3) Estimated GFR (Cockcroft-Gault) 117.5 Glucose Level 238 mg/dL (70-99) Calcium Level 8.5 mg/dL (8.5-10.1) Glucose (Fingerstick) 204 mg/dL (70-99) 244 mg/dL (70-99) 193 mg/dL (70-99) Test 02/19/17 20:33 02/20/17 02:55 02/20/17 07:31 Glucose (Fingerstick) 282 mg/dL (70-99) 174 mg/dL (70-99) White Blood Count 9.3 x10^3/uL (4.0-11.0) Red Blood Count 4.22 x10^6/uL (4.30-5.70) Hemoglobin 12.4 g/dL (13.0-17.5) Hematocrit 36.3 % (39.0-53.0) Mean Corpuscular Volume 86 fL (79-100) Mean Corpuscular Hemoglobin 29 pg (25-35) Mean Corpuscular Hemoglobin Concent 34 g/dL (31-37) Red Cell Distribution Width 14.2 % (11.5-14.5) Platelet Count 521 x10^3/uL (140-400) Neutrophils (%) (Auto) 66 % (31-73) Lymphocytes (%) (Auto) 22 % (24-48) Monocytes (%) (Auto) 9 % (0-9) Eosinophils (%) (Auto) 3 % (0-3) Basophils (%) (Auto) 1 % (0-3) Neutrophils # (Auto) 6.1 x10^3uL (1.8-7.7) Lymphocytes # (Auto) 2.0 x10^3/uL (1.0-4.8) Monocytes # (Auto) 0.9 x10^3/uL (0.0-1.1) Eosinophils # (Auto) 0.3 x10^3/uL (0.0-0.7) Basophils # (Auto) 0.1 x10^3/uL (0.0-0.2) Sodium Level 138 mmol/L (136-145) Potassium Level 3.4 mmol/L (3.5-5.1) Chloride Level 103 mmol/L (98-107) Carbon Dioxide Level 25 mmol/L (21-32) Anion Gap 10 (6-14) Blood Urea Nitrogen 12 mg/dL (8-26) Creatinine 0.7 mg/dL (0.7-1.3) Estimated GFR (Cockcroft-Gault) 117.5 Glucose Level 211 mg/dL (70-99) Calcium Level 8.8 mg/dL (8.5-10.1) Laboratory Tests Test 02/19/17 12:00 02/19/17 17:16 02/19/17 20:33 02/20/17 02:55 Glucose (Fingerstick) 244 mg/dL (70-99) 193 mg/dL (70-99) 282 mg/dL (70-99) White Blood Count 9.3 x10^3/uL (4.0-11.0) Red Blood Count 4.22 x10^6/uL (4.30-5.70) Hemoglobin 12.4 g/dL (13.0-17.5) Hematocrit 36.3 % (39.0-53.0) Mean Corpuscular Volume 86 fL (79-100) Mean Corpuscular Hemoglobin 29 pg (25-35) Mean Corpuscular Hemoglobin Concent 34 g/dL (31-37) Red Cell Distribution Width 14.2 % (11.5-14.5) Platelet Count 521 x10^3/uL (140-400) Neutrophils (%) (Auto) 66 % (31-73) Lymphocytes (%) (Auto) 22 % (24-48) Monocytes (%) (Auto) 9 % (0-9) Eosinophils (%) (Auto) 3 % (0-3) Basophils (%) (Auto) 1 % (0-3) Neutrophils # (Auto) 6.1 x10^3uL (1.8-7.7) Lymphocytes # (Auto) 2.0 x10^3/uL (1.0-4.8) Monocytes # (Auto) 0.9 x10^3/uL (0.0-1.1) Eosinophils # (Auto) 0.3 x10^3/uL (0.0-0.7) Basophils # (Auto) 0.1 x10^3/uL (0.0-0.2) Sodium Level 138 mmol/L (136-145) Potassium Level 3.4 mmol/L (3.5-5.1) Chloride Level 103 mmol/L (98-107) Carbon Dioxide Level 25 mmol/L (21-32) Anion Gap 10 (6-14) Blood Urea Nitrogen 12 mg/dL (8-26) Creatinine 0.7 mg/dL (0.7-1.3) Estimated GFR (Cockcroft-Gault) 117.5 Glucose Level 211 mg/dL (70-99) Calcium Level 8.8 mg/dL (8.5-10.1) Test 02/20/17 07:31 Glucose (Fingerstick) 174 mg/dL (70-99) Problem List Problems Medical Problems: (1) Abscess Status: Acute Assessment/Plan cont drain and abx Problems: KHADRA LUNA MD February 20, 2017 09:32
[2017-02-20 11:00] VITALS: BP 131/77
--- NOTE | 2017-02-20 11:36 | PDOC ---
PROGRESS NOTES Chief Complaint Chief Complaint Recurrent flank abscess with retroperitoneal extension 1. Abscess: s/p drain placement by [facility] on 02/17. culture pos for K.pneumo and E.coli. switch to cefepime for now. sensitive to vantin as well; consider switching when appropriate for D/C 2. Pain control: adequate, offer oxycodone as first choice. 3. Leukocytosis: with left shift, c/w infection. improving 4. DM: poorly controlled, prob 2/2 infection. increase levemir to 10->15->20 , cont ISS 5. Hypokalemia: ongoing. replete 6. Prophylaxis: lovenox History of Present Illness History of Present Illness feels fine today, pain well controlled Vitals Vitals Vital Signs Date Time Temp Pulse Resp B/P (MAP) Pulse Ox O2 Delivery O2 Flow Rate FiO2 02/20/17 08:36 67 135/79 02/20/17 07:44 Room Air 02/20/17 07:00 98.1 18 95 98.1 Physical Exam General: Alert, Oriented X3, Cooperative, No acute distress Heart: Regular rate, No murmurs Lungs: Clear Abdomen: Soft, Other (less erythema and induration, drain in place) Extremities: No clubbing, No cyanosis, No edema Skin: No rashes Labs LABS Laboratory Tests Test 02/19/17 12:00 02/19/17 17:16 02/19/17 20:33 02/20/17 02:55 Glucose (Fingerstick) 244 mg/dL (70-99) 193 mg/dL (70-99) 282 mg/dL (70-99) White Blood Count 9.3 x10^3/uL (4.0-11.0) Red Blood Count 4.22 x10^6/uL (4.30-5.70) Hemoglobin 12.4 g/dL (13.0-17.5) Hematocrit 36.3 % (39.0-53.0) Mean Corpuscular Volume 86 fL (79-100) Mean Corpuscular Hemoglobin 29 pg (25-35) Mean Corpuscular Hemoglobin Concent 34 g/dL (31-37) Red Cell Distribution Width 14.2 % (11.5-14.5) Platelet Count 521 x10^3/uL (140-400) Neutrophils (%) (Auto) 66 % (31-73) Lymphocytes (%) (Auto) 22 % (24-48) Monocytes (%) (Auto) 9 % (0-9) Eosinophils (%) (Auto) 3 % (0-3) Basophils (%) (Auto) 1 % (0-3) Neutrophils # (Auto) 6.1 x10^3uL (1.8-7.7) Lymphocytes # (Auto) 2.0 x10^3/uL (1.0-4.8) Monocytes # (Auto) 0.9 x10^3/uL (0.0-1.1) Eosinophils # (Auto) 0.3 x10^3/uL (0.0-0.7) Basophils # (Auto) 0.1 x10^3/uL (0.0-0.2) Sodium Level 138 mmol/L (136-145) Potassium Level 3.4 mmol/L (3.5-5.1) Chloride Level 103 mmol/L (98-107) Carbon Dioxide Level 25 mmol/L (21-32) Anion Gap 10 (6-14) Blood Urea Nitrogen 12 mg/dL (8-26) Creatinine 0.7 mg/dL (0.7-1.3) Estimated GFR (Cockcroft-Gault) 117.5 Glucose Level 211 mg/dL (70-99) Calcium Level 8.8 mg/dL (8.5-10.1) Test 02/20/17 07:31 02/20/17 10:46 Glucose (Fingerstick) 174 mg/dL (70-99) 231 mg/dL (70-99) CHRIS HENRY MD February 20, 2017 11:36
[2017-02-20 15:00] VITALS: BP 138/81
[2017-02-20] MEDS: CEFEPIME HCL 1 GM in IV NORMAL SALINE 50ML 50 ML IV SCH ×2 (15:29→21:20)
[2017-02-20 19:00] VITALS: BP 130/78
[2017-02-20] MEDS: INSULIN DETEMIR 300 UNITS/3 ML INSULN.PEN. SQ SCH (21:25)
[2017-02-20 23:00] VITALS: BP 142/84
[2017-02-21 03:00] VITALS: BP 137/78
[2017-02-21 04:35] LABS: BASO # 0.1 x10^3/uL (0.0-0.2); BASO % 1 % (0-3); EOS % 3 % (0-3); HEMATOCRIT 37.4 % (39.0-53.0); HEMOGLOBIN 12.7 g/dL (13.0-17.5); LYMPH # 2.4 x10^3/uL (1.0-4.8); LYMPH % 28 % (24-48); MEAN CORPUSCULAR HEMOGLOBIN 30 pg (25-35); MEAN CORPUSCULAR HGB CONC 34 g/dL (31-37); MEAN CORPUSCULAR VOLUME 87 fL (79-100); MONO % 9 % (0-9); NEUT % 59 % (31-73); PLATELET COUNT 534 x10^3/uL (140-400); RED BLOOD COUNT 4.29 x10^6/uL (4.30-5.70); RED CELL DISTRIBUTION WIDTH 13.9 % (11.5-14.5); WHITE BLOOD COUNT 8.6 x10^3/uL (4.0-11.0)
[2017-02-21 05:09] LABS: CALCIUM 9.2 mg/dL (8.5-10.1); CREATININE 0.7 mg/dL (0.7-1.3); GFR 117.5; POTASSIUM 3.3 mmol/L (3.5-5.1)
[2017-02-21] MEDS: CEFEPIME HCL 1 GM in IV NORMAL SALINE 50ML 50 ML IV SCH (05:21)
[2017-02-21 07:00] VITALS: BP 133/85
[2017-02-21] MEDS: LISINOPRIL 5 MG TABLET. PO SCH (08:29)
[2017-02-21] MEDS: metFORMIN 500 MG TABLET PO SCH (08:29)
[2017-02-21] MEDS: INSULIN ASPART 300 UNITS/3 ML INSULN.PEN SQ SCH (08:33)
--- NOTE | 2017-02-21 09:07 | PDOC ---
PROGRESS NOTES Chief Complaint Chief Complaint Recurrent flank abscess with retroperitoneal extension 1. Abscess: s/p drain placement by [facility] on 02/17. culture pos for K.pneumo and E.coli. switch to varghese dale. ok for D/C by surgery 2. Pain control: adequate 3. Leukocytosis: with left shiftat admit, c/w infection. resolved 4. DM: poorly controlled, prob 2/2 infection. increased levemir to 10->15->20 , cont ISS 5. Hypokalemia: resolved 6. Prophylaxis: lovenox Dispo: home today, F/U with surgery History of Present Illness History of Present Illness feels fine today, pain well controlled Vitals Vitals Vital Signs Date Time Temp Pulse Resp B/P (MAP) Pulse Ox O2 Delivery O2 Flow Rate FiO2 02/21/17 08:29 66 137/78 02/21/17 03:00 97.8 18 95 Room Air 97.8 Physical Exam General: Alert, Oriented X3, Cooperative, No acute distress Heart: Regular rate, No murmurs Lungs: Clear Abdomen: Soft, Other (less erythema and induration, drain in place) Extremities: No clubbing, No cyanosis, No edema Skin: No rashes Labs LABS Laboratory Tests Test 02/20/17 10:46 02/20/17 16:51 02/20/17 21:04 02/21/17 03:05 Glucose (Fingerstick) 231 mg/dL (70-99) 157 mg/dL (70-99) 181 mg/dL (70-99) White Blood Count 8.6 x10^3/uL (4.0-11.0) Red Blood Count 4.29 x10^6/uL (4.30-5.70) Hemoglobin 12.7 g/dL (13.0-17.5) Hematocrit 37.4 % (39.0-53.0) Mean Corpuscular Volume 87 fL (79-100) Mean Corpuscular Hemoglobin 30 pg (25-35) Mean Corpuscular Hemoglobin Concent 34 g/dL (31-37) Red Cell Distribution Width 13.9 % (11.5-14.5) Platelet Count 534 x10^3/uL (140-400) Neutrophils (%) (Auto) 59 % (31-73) Lymphocytes (%) (Auto) 28 % (24-48) Monocytes (%) (Auto) 9 % (0-9) Eosinophils (%) (Auto) 3 % (0-3) Basophils (%) (Auto) 1 % (0-3) Neutrophils # (Auto) 5.1 x10^3uL (1.8-7.7) Lymphocytes # (Auto) 2.4 x10^3/uL (1.0-4.8) Monocytes # (Auto) 0.8 x10^3/uL (0.0-1.1) Eosinophils # (Auto) 0.2 x10^3/uL (0.0-0.7) Basophils # (Auto) 0.1 x10^3/uL (0.0-0.2) Sodium Level 139 mmol/L (136-145) Potassium Level 3.3 mmol/L (3.5-5.1) Chloride Level 103 mmol/L (98-107) Carbon Dioxide Level 26 mmol/L (21-32) Anion Gap 10 (6-14) Blood Urea Nitrogen 13 mg/dL (8-26) Creatinine 0.7 mg/dL (0.7-1.3) Estimated GFR (Cockcroft-Gault) 117.5 Glucose Level 163 mg/dL (70-99) Calcium Level 9.2 mg/dL (8.5-10.1) Test 02/21/17 07:48 Glucose (Fingerstick) 173 mg/dL (70-99) CHRIS HENRY MD February 21, 2017 09:07
--- NOTE | 2017-02-21 10:47 | PDOC ---
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 02/21/17 1047: SURGICAL PROGRESS NOTE Subjective tolerating diet improved Vital Signs Vital Signs Date Time Temp Pulse Resp B/P (MAP) Pulse Ox O2 Delivery O2 Flow Rate FiO2 02/21/17 08:29 66 137/78 02/21/17 07:00 98.3 18 95 Room Air 98.3 I&O Intake and Output 02/21/17 07:00 Intake Total 1530 ml Output Total 12 ml Balance 1518 ml Intake Oral 1380 ml IV Total 150 ml Drainage Total 12 ml # Voids 2 General: Alert, Oriented X3, Cooperative, No acute distress Abdomen: Soft, Other (Right flank, erythema and induration improved, drain in place) Labs Laboratory Tests Test 02/19/17 12:00 02/19/17 17:16 02/19/17 20:33 02/20/17 02:55 Glucose (Fingerstick) 244 mg/dL (70-99) 193 mg/dL (70-99) 282 mg/dL (70-99) White Blood Count 9.3 x10^3/uL (4.0-11.0) Red Blood Count 4.22 x10^6/uL (4.30-5.70) Hemoglobin 12.4 g/dL (13.0-17.5) Hematocrit 36.3 % (39.0-53.0) Mean Corpuscular Volume 86 fL (79-100) Mean Corpuscular Hemoglobin 29 pg (25-35) Mean Corpuscular Hemoglobin Concent 34 g/dL (31-37) Red Cell Distribution Width 14.2 % (11.5-14.5) Platelet Count 521 x10^3/uL (140-400) Neutrophils (%) (Auto) 66 % (31-73) Lymphocytes (%) (Auto) 22 % (24-48) Monocytes (%) (Auto) 9 % (0-9) Eosinophils (%) (Auto) 3 % (0-3) Basophils (%) (Auto) 1 % (0-3) Neutrophils # (Auto) 6.1 x10^3uL (1.8-7.7) Lymphocytes # (Auto) 2.0 x10^3/uL (1.0-4.8) Monocytes # (Auto) 0.9 x10^3/uL (0.0-1.1) Eosinophils # (Auto) 0.3 x10^3/uL (0.0-0.7) Basophils # (Auto) 0.1 x10^3/uL (0.0-0.2) Sodium Level 138 mmol/L (136-145) Potassium Level 3.4 mmol/L (3.5-5.1) Chloride Level 103 mmol/L (98-107) Carbon Dioxide Level 25 mmol/L (21-32) Anion Gap 10 (6-14) Blood Urea Nitrogen 12 mg/dL (8-26) Creatinine 0.7 mg/dL (0.7-1.3) Estimated GFR (Cockcroft-Gault) 117.5 Glucose Level 211 mg/dL (70-99) Calcium Level 8.8 mg/dL (8.5-10.1) Test 02/20/17 07:31 02/20/17 10:46 02/20/17 16:51 02/20/17 21:04 Glucose (Fingerstick) 174 mg/dL (70-99) 231 mg/dL (70-99) 157 mg/dL (70-99) 181 mg/dL (70-99) Test 02/21/17 03:05 02/21/17 07:48 White Blood Count 8.6 x10^3/uL (4.0-11.0) Red Blood Count 4.29 x10^6/uL (4.30-5.70) Hemoglobin 12.7 g/dL (13.0-17.5) Hematocrit 37.4 % (39.0-53.0) Mean Corpuscular Volume 87 fL (79-100) Mean Corpuscular Hemoglobin 30 pg (25-35) Mean Corpuscular Hemoglobin Concent 34 g/dL (31-37) Red Cell Distribution Width 13.9 % (11.5-14.5) Platelet Count 534 x10^3/uL (140-400) Neutrophils (%) (Auto) 59 % (31-73) Lymphocytes (%) (Auto) 28 % (24-48) Monocytes (%) (Auto) 9 % (0-9) Eosinophils (%) (Auto) 3 % (0-3) Basophils (%) (Auto) 1 % (0-3) Neutrophils # (Auto) 5.1 x10^3uL (1.8-7.7) Lymphocytes # (Auto) 2.4 x10^3/uL (1.0-4.8) Monocytes # (Auto) 0.8 x10^3/uL (0.0-1.1) Eosinophils # (Auto) 0.2 x10^3/uL (0.0-0.7) Basophils # (Auto) 0.1 x10^3/uL (0.0-0.2) Sodium Level 139 mmol/L (136-145) Potassium Level 3.3 mmol/L (3.5-5.1) Chloride Level 103 mmol/L (98-107) Carbon Dioxide Level 26 mmol/L (21-32) Anion Gap 10 (6-14) Blood Urea Nitrogen 13 mg/dL (8-26) Creatinine 0.7 mg/dL (0.7-1.3) Estimated GFR (Cockcroft-Gault) 117.5 Glucose Level 163 mg/dL (70-99) Calcium Level 9.2 mg/dL (8.5-10.1) Glucose (Fingerstick) 173 mg/dL (70-99) Laboratory Tests Test 02/20/17 10:46 02/20/17 16:51 02/20/17 21:04 02/21/17 03:05 Glucose (Fingerstick) 231 mg/dL (70-99) 157 mg/dL (70-99) 181 mg/dL (70-99) White Blood Count 8.6 x10^3/uL (4.0-11.0) Red Blood Count 4.29 x10^6/uL (4.30-5.70) Hemoglobin 12.7 g/dL (13.0-17.5) Hematocrit 37.4 % (39.0-53.0) Mean Corpuscular Volume 87 fL (79-100) Mean Corpuscular Hemoglobin 30 pg (25-35) Mean Corpuscular Hemoglobin Concent 34 g/dL (31-37) Red Cell Distribution Width 13.9 % (11.5-14.5) Platelet Count 534 x10^3/uL (140-400) Neutrophils (%) (Auto) 59 % (31-73) Lymphocytes (%) (Auto) 28 % (24-48) Monocytes (%) (Auto) 9 % (0-9) Eosinophils (%) (Auto) 3 % (0-3) Basophils (%) (Auto) 1 % (0-3) Neutrophils # (Auto) 5.1 x10^3uL (1.8-7.7) Lymphocytes # (Auto) 2.4 x10^3/uL (1.0-4.8) Monocytes # (Auto) 0.8 x10^3/uL (0.0-1.1) Eosinophils # (Auto) 0.2 x10^3/uL (0.0-0.7) Basophils # (Auto) 0.1 x10^3/uL (0.0-0.2) Sodium Level 139 mmol/L (136-145) Potassium Level 3.3 mmol/L (3.5-5.1) Chloride Level 103 mmol/L (98-107) Carbon Dioxide Level 26 mmol/L (21-32) Anion Gap 10 (6-14) Blood Urea Nitrogen 13 mg/dL (8-26) Creatinine 0.7 mg/dL (0.7-1.3) Estimated GFR (Cockcroft-Gault) 117.5 Glucose Level 163 mg/dL (70-99) Calcium Level 9.2 mg/dL (8.5-10.1) Test 02/21/17 07:48 Glucose (Fingerstick) 173 mg/dL (70-99) Problem List Problems Medical Problems: (1) Abscess Status: Acute Assessment/Plan drain output decreased abx adjusted due to culture sensitivity continue drain, work toward transition to oral abx Problems: KHADRA LUNA MD 02/21/17 1245: SURGICAL PROGRESS NOTE Assessment/Plan Pt seen and examined. Agree with Ms. 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
[2017-02-21 11:00] VITALS: BP 143/79
[2017-02-21] MEDS ORDERED: INSU100I27 SQ (12:18)
[2017-02-21] MEDS ORDERED: CEFP200T PO (12:18)
[2017-02-21] MEDS ORDERED: OXYC1TAB9 PO (12:18)
[2017-02-21] MEDS ORDERED: METR500T PO (12:18)
--- NOTE | 2017-02-21 21:43 | DS ---
DATE OF DISCHARGE: 02/21/2017 CHIEF COMPLAINT: Right flank and retroperitoneal abscess, recurrent. HOSPITAL COURSE: The patient is a 56-year-old [place] gentleman who presented with severe right-sided flank pain secondary to cellulitis in the area. He had had multiple admissions for same in the past. He once again underwent a drain placement into the retroperitoneal portion of his abscess on 02/18/2017. Antibiotics were tailored to identified E. coli and Klebsiella pneumonia. He was switched before discharge to Vantin and Flagyl and was advised to follow up with surgery closely. PHYSICAL EXAMINATION: Please refer to note from same day. DISCHARGE DATE: 02/21/2017. DISCHARGE DIAGNOSIS: Flank and retroperitoneal abscess, status post drain placement. DISCHARGE DISPOSITION: To home. DISCHARGE CONDITION: Improved. DISCHARGE MEDICATIONS: Please refer to MAR. DISCHARGE INSTRUCTIONS: The patient will follow up with Dr. Hollins in 1 week. CHRIS HENRY MD DR: FERNANDA/nts JOB#: [id number] / [id number]
== END 2017-02-21 14:40 | disposition home or self-care (01) | DRG 871 ==
LOC: ER 21:01 → 4 NORTH 21:34
PROVIDERS: ADMIT Internal Medicine; ATTEND Internal Medicine
PROC: 0K9N30Z Drainage of Right Hip Muscle with Drainage Device, Percutaneous Approach (ICD-10-PCS; principal; 2017-02-16)
DX: A41.9 Sepsis, unspecified organism (principal); K68.12 Psoas muscle abscess; K68.19 Other retroperitoneal abscess; L02.211 Cutaneous abscess of abdominal wall; L03.90 Cellulitis, unspecified; E44.0 Moderate protein-calorie malnutrition; E11.65 Type 2 diabetes mellitus with hyperglycemia; E87.6 Hypokalemia; Z87.891 Personal history of nicotine dependence; Z90.49 Acquired absence of other specified parts of digestive tract; Z68.27 Body mass index [BMI] 27.0-27.9, adult
CPT/HCPCS: 36415; 49406; 74177; 76705; 80048; 80053; 80202; 82947; 83036; 85007; 85027; 85610; 87040; 87071; 87075; 87186; 87205; A4215; C1729; C1894; J0692; J1815; J1956; J2270; J2543; J3370; J7030; J7040; J7050; Q9966; Q9967

== ENCOUNTER 2018-02-25 14:28 | Emergency (ER) | payer SELFPAY | END 2018-02-25 15:12 | disposition left against medical advice (07) | LOC: ER 15:12 | DX: R10.9 Unspecified abdominal pain (principal); Z53.21 Procedure and treatment not carried out due to patient leaving prior to being seen by health care provider ==